=== PATIENT | female | born 1960 | race Caucasian/White ===

== ENCOUNTER 2020-10-16 17:53 | Emergency (ER) | payer BC, SELFPAY ==
[2020-10-16 17:56] VITALS: BP 163/85; PULSE 116; RESP 20; TEMP 36.4; O2SAT 100
--- NOTE | 2020-10-16 18:00 | ED.URI ---
HPI - URI/Sore Throat General Chief Complaint: Upper Respiratory Infection Stated Complaint: SOB Time Seen by Provider: 10/16/20 18:00 Source: patient Mode of arrival: ambulatory Limitations: no limitations History of Present Illness HPI Narrative: Nicole Shabazz is a 60 yo obese female with PMH of DM, GERD, COPD, who comes to the office wanting a steroid for sinusitis as she was seen at [facility] on Monday and was started on doxycycline. She has not given steroids at that time and when she was checked and here her O2 sats were were within normal limits but she said that she feels like she cannot breathe and that her nose is also starting to drain. Patient is wanting something to help with both the nasal drainage as well improve her lung function Related Data Allergies Allergy/AdvReac Type Severity Reaction Status Date / Time cephalexin Allergy Unknown Unknown Verified 05/05/20 11:19 ciprofloxacin Allergy Unknown Unknown Verified 05/05/20 11:19 fluoxetine Allergy Unknown Unknown Verified 05/05/20 11:19 meperidine Allergy Unknown Unknown Verified 05/05/20 11:19 Penicillins Allergy Unknown Unknown Verified 05/05/20 11:19 Quinolones Allergy Unknown Unknown Verified 05/05/20 11:19 CIPROFLOXACIN HCL Allergy Mild Unknown Uncoded 05/05/20 11:19 Review of Systems Review of Systems: Narrative: CONSTITUTIONAL: Denies fever, chills, sweats. EYES: Denies visual changes, redness, discharge. ENT: Denies rhinorrhea, congestion, sore throat, otalgia. CARDIOVASCULAR: Denies chest pain, palpitations, edema. RESPIRATORY: Denies dyspnea, wheezing, cough feels short of breath even though O2 sats in triage are within normal limits GASTROINTESTINAL: Denies abdominal pain, nausea, vomiting, diarrhea. GENITOURINARY: Denies dysuria, hematuria, abnormal discharge SKIN: Denies rash or itching. NEUROLOGIC: Denies numbness, or focal weakness. PSYCHIATRIC: Denies anxiety or depression. [facility] Past Medical History Medical History Anxiety Depression Diverticulitis (~12/2002) Dyslipidemia Essential (primary) hypertension GERD (gastroesophageal reflux disease) Hiatal hernia History of diverticulitis Hypothyroidism Left foot drop Type 2 diabetes mellitus without complications Surgical History Surgical History History of cholecystectomy 2015 History of lumbosacral spine surgery 2013 History of partial colectomy 01/2016 - secondary to perforated diverticulitis History of total abdominal hysterectomy and bilateral salpingo-oophorectomy 1996 Hx of tonsillectomy Family History Family History Mother Family history of osteoporosis Family history of mental disorder Family history of colonic diverticulitis Hypertension Father Cerebrovascular accident Family history of lung cancer Family history of glaucoma Other Diabetes mellitus Family history of arthritis Family history of cardiovascular disease Family history of heart disease in male family member before age 55 Social History Social History Smoking status: Former smoker Second hand tobacco smoke exposure: No Smoking end date: 11/06/12 Alcohol intake: current Substance use: never Substance use type: does not use Gender identity (if verbalized by the patient): Female Comments At time of signature, I agree with nursing past medical, surgical, social and family history. There is no relevant family history pertinent to the presenting complaint. Exam Narrative: Exam Narrative: GENERAL: This is a well-nourished, well-developed patient, in mild distress. Very anxious about her breathing status over the weekend HEAD: normocephalic, atraumatic. EYES: Sclera clear/white. Vision is grossly intact. EARS: External ears normal, auditory canal
== END 2020-10-16 18:14 | disposition home or self-care (01) ==
PROVIDERS: Emergency Provider Nurse Practitioner
DX: F41.9 Anxiety disorder, unspecified (principal); R06.02 Shortness of breath; Z87.891 Personal history of nicotine dependence; F32.9 Major depressive disorder, single episode, unspecified; E78.5 Hyperlipidemia, unspecified; I10 Essential (primary) hypertension; K21.9 Gastro-esophageal reflux disease without esophagitis; E03.9 Hypothyroidism, unspecified; E11.9 Type 2 diabetes mellitus without complications; J44.9 Chronic obstructive pulmonary disease, unspecified
CPT/HCPCS: 99213; G0463

== ENCOUNTER 2020-10-18 16:03 | Emergency (ER) | payer BC, SELFPAY ==
--- NOTE | ~2020-10-18 | XR_ITS ---
EXAMINATION: XR chest 2V DATE: 10/18/2020 16:34 INDICATION: Shortness of breath TECHNIQUE: PA and lateral views of the chest are obtained. COMPARISON: 11/15/2015 FINDINGS: There are minimal airspace opacities of the lung bases. There is no pleural effusion or pne umothorax. The cardiomediastinal silhouette is normal. There is moderate thoracic spondylosis. IMPRESSION: 1. Minimal airspace opacities of the lung bases, consistent with atelectasis versus pneumonia. Reviewed, dictated and finalized at location A. ITY FACILITATOR IMPRESSION: 1. Minimal airspace opacities of the lung bases, consistent with atelectasis ve rsus pneumonia.
[2020-10-18 16:10] VITALS: BP 153/91; PULSE 118; RESP 20; TEMP 36.8; O2SAT 99
--- NOTE | 2020-10-18 16:10 | ED.GENADULT ---
HPI - General Adult General Chief complaint: Upper Respiratory Infection Stated complaint: back pain/sob Time Seen by Provider: 10/18/20 16:06 Source: patient Mode of arrival: ambulatory Limitations: no limitations History of Present Illness HPI narrative: 60-year-old female patient presents to the [facility] with complaints of shortness of breath and just overall having trouble catching her breath. Patient states that her shortness of breath at times comes on when she is just sitting there resting. Patient states that at times it does get better when she is up walking around. Patient states she does have a lot when trying to go to sleep but then she starts to calm herself down and is able to fall asleep. Patient states that her symptoms started this past Monday on 10/13. Patient states she was seen at [facility] on 10/14 and was given doxycycline and an inhaler for her symptoms. Patient states that her symptoms were not any better on Monday so she came here Monday and saw the nurse practitioner and was given a 10-day dose of prednisone and Zyrtec. Patient states she does not feel like any of the medications are helping her and continues to have some issues with shortness of breath and catching her breathing. Patient denies any fevers, body aches or chills. Denies any coughing. Denies any chest pain. Patient states she does have some back pain at times. Denies any abdominal pain, nausea, vomiting or diarrhea. Patient does have history of anxiety and states that she does have lorazepam at home to take for anxiety but states she has not taken it in the last 2 to 3 weeks. Patient states she was unsure if she could take it with the medications that she is currently on so she has not taken it. Patient states she has not been tested for Covid. Related Data Home Medications Medication Instructions Recorded Confirmed citalopram 10 mg PO DAILY 10/18/20 10/18/20 Allergies Allergy/AdvReac Type Severity Reaction Status Date / Time cephalexin Allergy Unknown Unknown Verified 10/18/20 16:06 ciprofloxacin Allergy Unknown Unknown Verified 10/18/20 16:06 fluoxetine Allergy Unknown Unknown Verified 10/18/20 16:06 meperidine Allergy Unknown Unknown Verified 10/18/20 16:06 Penicillins Allergy Unknown Unknown Verified 10/18/20 16:06 Quinolones Allergy Unknown Unknown Verified 12/13/20 16:06 CIPROFLOXACIN HCL Allergy Mild Unknown Uncoded 05/05/20 11:19 Review of Systems Review of Systems: Narrative: CONSTITUTIONAL: Denies fever, chills, or sweats. EYES: Denies visual changes, redness, or discharge. ENT: Denies rhinorrhea, congestion, sore throat, or otalgia. CARDIOVASCULAR: Denies chest pain, palpitations, or edema. RESPIRATORY: Denies cough, positive dyspnea. GASTROINTESTINAL: Denies abdominal pain, nausea, vomiting, or diarrhea. GENITOURINARY: Denies dysuria or hematuria. SKIN: Denies rash or itching. MUSCULOSKELETAL: Positive back pain, denies joint pain, or myalgia. NEUROLOGIC: Denies headache, numbness, or weakness. PSYCHIATRIC: Denies anxiety or depression. [facility] Past Medical History Medical History Anxiety Depression Diverticulitis (~12/2002) Dyslipidemia Essential (primary) hypertension GERD (gastroesophageal reflux disease) Hiatal hernia History of diverticulitis Hypothyroidism Left foot drop Type 2 diabetes mellitus without complications Surgical History Surgical History History of cholecystectomy 2015 History of lumbosacral spine surgery 2013 History of partial colectomy 01/2016 - secondary to perforated diverticulitis History of total abdominal hysterectomy and bilateral salpingo-oophorectomy 1996 Hx of tonsillectomy Family History Family History Mother Family history of osteoporosis Family history of mental disorder Family history of colonic d
--- NOTE | 2020-10-18 16:31 | ECG_ITS ---
Measurements Intervals [place] Rate: 113 P: 38 IN: 147 QRS: 2 QRSD: 90 T: 74 QT: 333 QTc: 457 Interpretive Statements SINUS TACHYCARDIA VENTRICULAR PREMATURE COMPLEXES NONSPECIFIC T-WAVE ABNORMALITY- INF/HIGH LAT LEADS BASELINE ARTIFACT- II, III, AVF ABNORMAL ECG Electronically Signed On 10-19-2020 6:54:47 SENIOR COURTROOM CLERK by Kenan Toscano D.O.
== END 2020-10-18 16:58 | disposition home or self-care (01) ==
PROVIDERS: Emergency Provider Nurse Practitioner Family
DX: Z20.828 Contact with and (suspected) exposure to other viral communicable diseases (principal); J18.9 Pneumonia, unspecified organism; R94.31 Abnormal electrocardiogram [ECG] [EKG]; Z87.891 Personal history of nicotine dependence; E78.5 Hyperlipidemia, unspecified; I10 Essential (primary) hypertension; E03.9 Hypothyroidism, unspecified; E11.9 Type 2 diabetes mellitus without complications; K21.9 Gastro-esophageal reflux disease without esophagitis; F41.9 Anxiety disorder, unspecified; F32.9 Major depressive disorder, single episode, unspecified
CPT/HCPCS: 71046; 93005; 99213; G0463

== ENCOUNTER 2020-10-19 07:02 | Outpatient (NON) | payer BC, SELFPAY ==
[2020-10-19 18:34] LABS: SARS-CoV-2 RNA PCR Negative
== END 2020-10-19 07:03 ==
LOC: ANHCOVIDDT 07:07
PROVIDERS: Visit Provider Nurse Practitioner Family
DX: Z20.828 Contact with and (suspected) exposure to other viral communicable diseases (principal); J18.9 Pneumonia, unspecified organism
CPT/HCPCS: 87635; C9803; U0003

== ENCOUNTER 2020-11-03 06:50 | Outpatient (NON) | payer BC, SELFPAY ==
[2020-11-03 18:45] LABS: SARS-CoV-2 RNA PCR Negative
== END 2020-11-03 06:51 ==
LOC: ANHCOVIDDT 06:54
PROVIDERS: PCP Physician Assistant; Visit Provider Physician Assistant
DX: R68.89 Other general symptoms and signs (principal); Z20.828 Contact with and (suspected) exposure to other viral communicable diseases
CPT/HCPCS: 87635; C9803; U0003

== ENCOUNTER 2021-08-09 10:44 | Outpatient (CLI) | payer BC, SELFPAY ==
--- NOTE | 2021-08-09 10:50 | ECG_ITS ---
Measurements Intervals [place] Rate: 104 P: 55 [place]: 146 QRS: 3 QRSD: 89 T: 57 QT: 343 QTc: 452 Interpretive Statements SINUS TACHYCARDIA LOW QRS VOLTAGE IN PRECORDIAL LEADS BASELINE WANDER- II, III, V1-V3 BORDERLINE ECG Electronically Signed On 08-09-2021 11:29:50 CDT by Kenan Toscano D.O.
== END 2021-08-09 10:45 | disposition home or self-care (01) ==
PROVIDERS: PCP Family Medicine; Visit Provider Family Medicine
DX: Z01.818 Encounter for other preprocedural examination (principal); R94.31 Abnormal electrocardiogram [ECG] [EKG]
CPT/HCPCS: 93005

== ENCOUNTER → 2022-02-11 08:13 | Outpatient (CLI) | payer BC, SELFPAY ==
--- NOTE | ~2022-02-11 | CT_ITS ---
EXAMINATION: CT abdomen pelvis wo con EXAM DATE: 02/11/2022 08:33 INDICATION: K43.2 - Incisional hernia without obstruction or gangrene. TECHNIQUE: Spiral CT of the abdomen and pelvis was performed without contrast. Axial, coronal and s agittal images of the abdomen and pelvis were reviewed. The dose-length product (DLP) for this exami nation was 1074.91 mGy-cm. The exposure was tailored according to patient size (auto mA exposure con trol), and iterative reconstruction (ASIR) was used as additional dose reduction technique. Compariso n is made to prior examination from 02/09/2016. FINDINGS: There is a right adrenal myelolipoma measuring 2.7 cm. Subcentimeter left adrenal adenoma. The spleen, liver and pancreas are unremarkable. There are cholecystectomy clips. There is no nephr olithiasis or hydronephrosis. The uterus is not identified and has likely been surgically resected. The bladder is unremarkable. There is no retroperitoneal or pelvic lymphadenopathy. There is mil d scattered arteriosclerotic disease. Large supraumbilical abdominal wall hernia containing multiple loops of nonobstructed small bowel. There are no findings to suggest appendicitis. There are surgical changes consistent with gastric sl eeve procedure. There is expected amount of colonic stool. No free intraperitoneal gas. Rectosigmo id anastomosis site. There is mild scattered colonic diverticulosis. There is no adjacent inflammato ry change to suggest diverticulitis. The heart is normal in size. There are no pericardial or pleur al effusions. The lung bases are unremarkable. There are no osteoblastic or osteolytic lesions iden tified. IMPRESSION: 1. Large supraumbilical hernia containing multiple nonobstructed small bowel loops. 2. Right adrenal myelolipoma. 3. Mild colonic diverticulosis. 4. Surgical changes. Reviewed, dictated and finalized at location A. IMPRESSION: 1. Large supraumbilical hernia containing multiple nonobstructed small bowel l oops. 2. Right adrenal myelolipoma. 3. Mild colonic diverticulosis. 4. Surgical changes.
== END ==
PROVIDERS: PCP Physician Assistant; Visit Provider Surgery
DX: K43.2 Incisional hernia without obstruction or gangrene (principal); D35.00 Benign neoplasm of unspecified adrenal gland; K57.30 Diverticulosis of large intestine without perforation or abscess without bleeding; K42.9 Umbilical hernia without obstruction or gangrene
CPT/HCPCS: 74176

== ENCOUNTER 2022-10-12 11:11 | Outpatient (CLI) | payer BC, SELFPAY ==
--- NOTE | 2022-10-12 11:30 | ECG_ITS ---
Measurements Intervals [place] Rate: 83 P: 38 [place]: 147 QRS: 0 QRSD: 80 T: 60 QT: 339 QTc: 399 Interpretive Statements SINUS RHYTHM BASELINE ARTIFACT PRESENT NONSPECIFIC ST & T-WAVE ABNORMALITY COMPARED TO ECG 08/09/2021 11:02:43 SINUS RHYTHM NOW PRESENT Electronically Signed On 10-12-2022 15:09:35 BUSINESS UNIT CONTROLLER by Topher Ross M.D.
[2022-10-12 12:20] LABS: Basophils Percent Auto 0.5 % (0.2-1.2); Eosinophils Absolute Auto 0.1 K/mm3 (0-0.3); Eosinophils Percent Auto 1.5 % (0-4.4); Hematocrit 37.3 % (37.0-47.0); Hemoglobin 12.2 g/dL (12.0-15.0); Immature Granulocyte Absolute 0.02 K/mm3 (0.00-0.031); Immature Granulocyte Percent A 0.3 % (0-0.5); Lymphocytes Absolute Auto 2.12 K/mm3 (0.9-3.2); Lymphocytes Percent Auto 34.2 % (18.3-44.2); Mean Corpuscular HGB Conc 32.7 g/dl (32-36); Mean Corpuscular Hemoglobin 29.9 pg (26-34); Mean Corpuscular Volume 91.4 fl (80-100); Monocytes Absolute Auto 0.5 K/mm3 (0.1-0.6); Monocytes Percent Auto 8.1 % (2.6-8.5); Neutrophils Absolute Auto 3.4 K/mm3 (1.3-6.7); Neutrophils Percent Auto 55.4 % (45.5-73.1); Platelet Count Result 272 k/mm3 (150-375); Red Blood Count 4.08 M/mm3 (4.2-5.4); Red Cell Distribution Width 13.4 % (11.5-14.5); White Blood Count 6.2 K/mm3 (4.5-10.0)
[2022-10-12 12:32] LABS: Anion Gap 5 mmol/L (8-16); Blood Urea Nitrogen 20 mg/dL (7-17); Carbon Dioxide 31 mmol/L (22-30); Chloride 99 mmol/L (98-107); Estimated Glomerular Filt Rate > 60; Glucose 93 mg/dL (65-110); Potassium 4.1 mmol/L (3.4-5.0); Sodium 135 mmol/L (137-145)
== END 2022-10-12 11:12 | disposition home or self-care (01) ==
PROVIDERS: PCP Family Medicine; Visit Provider Surgery
DX: K43.2 Incisional hernia without obstruction or gangrene (principal); I10 Essential (primary) hypertension; Z01.818 Encounter for other preprocedural examination
CPT/HCPCS: 36415; 80048; 85025; 86850; 86900; 86901; 93005

== ENCOUNTER 2022-10-26 15:10 | Inpatient (IN) | payer BC, SELFPAY ==
[2022-10-10 15:08] VITALS: BMI 43.2
--- NOTE | 2022-10-10 15:22 | PC.NURSE ---
Addendum entered by Isabel Lambert RN 10/24/22 09:37: PT AWARE MASKS REQUIRED. Addendum entered by Isabel Lambert RN 10/24/22 09:36: PT TO ARRIVE AT 0600 ON 10/26/22 FOR SURGERY AT 0800. CLEAR LIQUIDS UP TO 20 OZ UNTIL 0500. Original Note: Report to the Outpatient Waiting Room, entrance under the green pavilion located off [facility], at time 10:00 on date 10/21/22. Planned Procedure Time: 12:00. Time changes happen often and if your time is changed the preop area will call you the afternoon before. - You and your visitor will be asked to self-screen and do not enter if you have any COVID symptoms. - Only one visitor is requested with a max of two and NO children visitors are allowed at this time. - The patient visitor may be requested to leave or wait in car when not with patient due to distancing restrictions. - A mask is optional within the hospital. Patients may have clear liquids (water, carbonated beverages, clear teas, apple juice) until 3 hours prior to surgery (9:00) with a maximum of 20 ounces. - No food from midnight until time of surgery Take the following medications with a SIP of water the morning of surgery: LEVOTHYROXINE, LORAZEPAM IF NEEDED Medications to discontinue per physician: VITAMINS/SUPPLEMENTS Date to take last dose: 10/17/22 Please no make-up, nail russian, hairspray, perfume, deodorant, or body powder the day of surgery. No jewelry (including any body piercings) or valuables the day of surgery, leave them at home. Please take a shower or bath the night before, or the morning of, surgery with an antibacterial soap (HIBICLENS). Wear comfortable, loose fitting clothing. - Jewelry must be removed prior to entering the operating room. Rings and piercings that are not removed may be cut off. - The hospital will not accept responsibility for valuables. - Please leave all valuables, including medications, at home the day of surgery. If you are going home after surgery, a licensed funeral car driver must drive you home. - NO public transportation without another adult if you receive anesthesia. - We recommend that an adult stay with you for 24 hours following discharge. - We also recommend that you do not drive, make important decision, drink alcoholic beverages, or take any drugs that were not prescribed by your health care provider for at least 24 hours after your discharge time. Follow any additional instructions given to you from your surgeon. If you or anyone in your household have experienced Covid symptoms in the past week, please notify your surgeon or the nurse liaison at the phone number below for possible testing. Telephone instructions given to FRANCY MORRIS and asked if any additional questions and then verbalized understanding. Patient advised to call surgeon office or pre surgery nurse liaison [phone] if any additional questions.
--- NOTE | 2022-10-24 09:36 | PC.NURSE ---
Pt states no changes in medications or health history since initial interview. New pre-op instructions reviewed with pt. Pt denies further questions at this time.
[2022-10-26] VITALS (14 sets, daily range): BP systolic 114–135; BP diastolic 63–96; PULSE 89–114; RESP 12–20; TEMP 36.8–37; O2SAT 94–100
[2022-10-26] MEDS: ACETAMINOPHEN 500 MG TABLET 1000 MG PO (06:36)
[2022-10-26] MEDS: LACTATED RINGERS 1,000 ML 30 ML IV CONT ×2 (06:45→13:09)
--- NOTE | 2022-10-26 06:48 | PM.IMHP ---
H&P: HPI History of Present Illness Date/Time: 10/26/22 06:48 Chief Complaint: incisional hernia Narrative: 62 yo woman presents for incisional hernia repair. She has had a previous ex lap for diverticulitis, had Petros's procedure and eventually had colostomy takedown. She has had a hernia that progressively enlarged. She now presents for complex repair. Review of Systems Review of Systems: All systems reviewed & are unremarkable except as noted in HPI and below Constitutional: Constitutional: Denies chills, Denies fever(s), Denies headache(s) and Denies weight loss Eyes: Eyes: Denies change in vision ENT: Denies dizziness, Denies headache(s), Denies neck mass and Denies throat swelling Cardiovascular: Cardiovascular: Denies chest pain, Denies lightheadedness and Denies dyspnea Respiratory: Respiratory: Denies cough, Denies dyspnea and Denies wheezing Gastrointestinal: Gastrointestinal: Denies abdominal pain, Denies change in bowel habits, Denies nausea and Denies vomiting Genitourinary: Genitourinary: Denies hematuria and Denies dysuria Musculoskeletal: Musculoskeletal: Reports as per HPI Integumentary/Breasts: Skin/Breast: Reports as per HPI Neurologic: Denies dizziness and Denies headache(s) Allergic/Immunologic: Allergic/Immunologic: Denies throat swelling and Denies wheezing [facility] Past Medical History Medical History Acquired pes planovalgus of left foot Anxiety Arthritis of knee, left Depression Diverticulitis (~12/2002) Dyslipidemia Encounter for immunization Essential (primary) hypertension GERD (gastroesophageal reflux disease) Hiatal hernia History of diverticulitis Hypothyroidism Type 2 diabetes mellitus without complications Surgical History Surgical History H/O bariatric surgery 2020 per patient questionnaire History of delivery History of cholecystectomy 2015 History of knee surgery History of lumbosacral spine surgery 2013 History of partial colectomy 01/2016 - secondary to perforated diverticulitis History of total abdominal hysterectomy and bilateral salpingo-oophorectomy 1996 Hx of tonsillectomy Family History Family History Mother Family history of osteoporosis Family history of mental disorder Family history of colonic diverticulitis Hypertension Cerebrovascular accident Diabetes mellitus Father Cerebrovascular accident Family history of lung cancer Family history of glaucoma Other Family history of arthritis Family history of cardiovascular disease Family history of heart disease in male family member before age 55 Social History Social History Smoking packs per day: 1 Smoking cigarettes per day: 20.0 Years smoked: 35 Smoking pack-years: 35.00 Smoking status: Former smoker Tobacco type: cigarettes Second hand tobacco smoke exposure: No Smoking end date: 11/06/12 Additional smoking assessment comments: 3 PACKS A DAY LAST COUPLE YRS OF SMOKING Alcohol intake: current Alcohol use details: VERY RARE Substance use: never Substance use type: does not use Living arrangements: with family Additional occupation/education comments: [employer] Gender identity (if verbalized by the patient): Female Spiritual care concerns: No Meds Home Medications and Allergies Home Medications Medication Instructions Recorded Confirmed Type levothyroxine 200 mcg tablet 200 mcg PO DAILY #90 tabs 12/30/21 10/26/22 Rx calcium carbonate 400 mg calcium 400 mg PO DAILY 01/14/22 10/26/22 History (1,000 mg) chewable tablet cholecalciferol (vitamin D3) 50 50 mcg PO DAILY 02/03/22 10/26/22 History mcg (2,000 unit) capsule lactobacillus combination no.9 4 4,000 mmu cells PO DAILY
[2022-10-26] MEDS: KETOROLAC 15 MG/ML VIAL (*BKC) IV PUSH (06:49)
--- NOTE | 2022-10-26 06:51 | WPDHPUPDATE1 ---
History and Physical Update Update Date/Time: 10/26/22 06:51 History and Physical has been reviewed, including an updated exam of the patient. There are NO changes in the patient's condition. Risks, benefits, and alternatives have been discussed and questions answered. Patient agrees to proceed with procedure.
[2022-10-26] MEDS: ALVIMOPAN 12 MG CAPSULE PO (07:17)
--- NOTE | 2022-10-26 07:44 | WPDANESEPPF ---
Anes - Initial Pre Proc Eval Procedure: Operation Date: 10/26/22 08:00 Proposed Procedures p Open Incisional Hernia Repair with Mesh Bilateral Component Separation - David Pulido DO Date/Time: 10/26/22 07:44 Surgeon: David Pulido DO Pre Op Diagnosis: incisional hernia Patient Data Age: 62 Gender: F Height: 1.7 m Weight: 126.1 kg Last Vital Signs Temp 37.0 C 10/26/22 07:06 Pulse 89 10/26/22 07:06 Resp 20 10/26/22 07:06 BP 115/80 10/26/22 07:06 Pulse Ox 100 10/26/22 07:06 O2 Del Method Room Air 10/26/22 07:06 Allergies Allergy/AdvReac Type Severity Reaction Status Date / Time ciprofloxacin Allergy Severe Anaphylaxis Verified 10/24/22 09:39 cephalexin Allergy Unknown Unknown Verified 10/24/22 09:39 fluoxetine Allergy Unknown Unknown Verified 10/24/22 09:39 meperidine Allergy Unknown Difficulty Verified 10/26/22 06:24 breathing/anxiety attack Penicillins Allergy Unknown Unknown Verified 10/24/22 09:39 Quinolones Allergy Unknown Unknown Verified 10/24/22 09:39 Home Medications Medication Instructions Recorded Confirmed Type levothyroxine 200 mcg tablet 200 mcg PO DAILY #90 tabs 12/30/21 10/26/22 Rx calcium carbonate 400 mg calcium 400 mg PO DAILY 01/14/22 10/26/22 History (1,000 mg) chewable tablet cholecalciferol (vitamin D3) 50 50 mcg PO DAILY 02/03/22 10/26/22 History mcg (2,000 unit) capsule lactobacillus combination no.9 4 4,000 mmu cells PO DAILY 02/03/22 10/26/22 History billion cell capsule (Adult 50 Plus Probiotic) mecobalamin (vitamin B12) 1,000 1,000 mcg PO DAILY 02/03/22 10/26/22 History mcg chewable tablet multivitamin 1 tablet PO DAILY 02/03/22 10/26/22 History clotrimazole-betamethasone 1 1 applic topical BID #15 grams 10/06/22 10/26/22 Rx %-0.05 % topical cream levothyroxine 25 mcg tablet 25 mcg PO .qod 10/06/22 10/26/22 History lorazepam 0.5 mg tablet 0.5 mg PO DAILY PRN anxiety #30 10/06/22 10/26/22 Rx tabs losartan 50 mg tablet 50 mg PO DAILY #30 tabs 10/06/22 10/26/22 Rx escitalopram oxalate 10 mg tablet 10 mg PO DAILY 10/26/22 10/26/22 History Patient hx anesthesia problems: none Family hx anesthesia problems: none Results Review: All pre-operative results and documents have been reviewed as part of the pre-operative evaluation. [facility] Past Medical History Medical History Acquired pes planovalgus of left foot Anxiety Arthritis of knee, left Depression Diverticulitis (~12/2002) Dyslipidemia Encounter for immunization Essential (primary) hypertension GERD (gastroesophageal reflux disease) Hiatal hernia History of diverticulitis Hypothyroidism Type 2 diabetes mellitus without complications Surgical History Surgical History H/O bariatric surgery 2020 per patient questionnaire History of delivery History of cholecystectomy 2015 History of knee surgery History of lumbosacral spine surgery 2013 History of partial colectomy 01/2016 - secondary to perforated diverticulitis History of total abdominal hysterectomy and bilateral salpingo-oophorectomy 1996 Hx of tonsillectomy Family History Family History Mother Family history of osteoporosis Family history of mental disorder Family history of colonic diverticulitis Hypertension Cerebrovascular accident Diabetes mellitus Father Cerebrovascular accident Family history of lung cancer Family history of glaucoma Other Family history of arthritis Family history of cardiovascular disease Family history of heart disease in male family member before age 55 Social History Social History Smoking packs per day: 1 Smoking cigarettes per day: 20.0 Years smoked: 35 Smoking pack-years: 35.00 Smoking status: Former
[2022-10-26] MEDS: CLINDAMYCIN 900 MG/D5W 50 ML 900 MG/50 ML PIGGYBACK 50 MG IVPB (07:57)
--- NOTE | 2022-10-26 13:09 | W.PM.PROC2 ---
Procedure Note - Detailed Date of Procedure 10/26/22 Pre-op Diagnosis Incarcerated incisional hernia Post-op Diagnosis Same Procedure Performed 1. Open retro rectus incarcerated incisional hernia repair 2. Retro rectus placement of 30 cm x 30 cm Bard soft mesh 3. Bilateral myofascial release (transversus abdominis release--6 cm on the left and 6 cm on the right) Surgeon David Pulido DO [employer] Dyer Yong Solis MD Anesthesia General Indications This is a 62-year-old woman who presented with an enlarging hernia. She has a history a Petros's procedure performed for perforated diverticulitis in 2016. She had an umbilical hernia repaired at that time. She then underwent colostomy takedown about 3 months later. One year ago she underwent laparoscopic sleeve gastrectomy and has lost greater than 50 lb. This hernia has become larger over the past couple years and is much more noticeable now that she has lost some weight. A CT of her abdomen and pelvis was performed on 02/11/2022. This showed evidence of a large supraumbilical hernia containing multiple loops of small bowel. This did not easily reduce on exam, but she was not showing any signs of bowel obstruction. Discussions were made with the patient about treatment options and decision was made to proceed with open incisional hernia repair with bilateral component separation. Findings Open incisional hernia repair was performed. The hernia sac was identified just superior to the umbilicus and was extending off to the left subcutaneous area. There was a large hernia sac and multiple loops of small bowel were adherent within the hernia sac. The small bowel was carefully taken down and appeared healthy. The hernia sac was excised and sent to the lab for pathology. There was too much tension to bring the fascia together and the hernia defect measured about 12 cm x 12 cm. A retrorectus space was developed bilaterally by the posterior rectus sheath from the rectus muscle. I then performed a transversus abdominis release bilaterally to develop enough mobilization on each side. This allowed approximately 6 cm of mobilization towards the midline on each side. I then closed the posterior sheath and placed a 30 cm x 30 cm Bard soft mesh within the retrorectus space. Two 19 round Josafat drains were placed within the retrorectus space as well. The anterior fascia was then closed over the mesh and another 15 round Josafat drain was placed within the subcutaneous space. Dr. Solis was present and assisted with the initial dissection and reduction of the incarcerated small bowel as well as for the bilateral component separation, mesh placement, and fascial closure. Description of Procedure Procedure as well as risks, benefits, and alternatives were discussed with patient. Her written consent was obtained and placed in chart prior to procedure. Patient was brought back to surgical suite. She was placed supine on operating table. Time-out was done to confirm patient and procedure. She was then intubated by the anesthesia department. Her abdomen was prepped and draped in sterile fashion using chlorhexidine prep. A large midline vertical incision was made using a 10 blade scalpel. Electrocautery was used for hemostasis and for dissection through the subcutaneous tissue. The hernia sac was identified and carefully dissected circumferentially to the level of the fascia. The linea alba was then incised just cephalad to the hernia defect and the peritoneum was entered using electrocautery. I then carefully excised the hernia sac from the midline and carefully reduced the bowel. The small bowel adhesions to the hernia sac were taken down using Metzenbaum scissors. There were also several other adhesions up to the abdominal wall that were carefully taken down. I was able to excised the entire hernia sac and visualize the entire undersurface of the abdominal wall. I then placed a blue towel over the bowel
[2022-10-26] MEDS: ONDANSETRON INJ 4 MG/2 ML VIAL IV PUSH (13:25)
--- NOTE | 2022-10-26 15:26 | ADMGEN ---
This patient, Nicole Shabazz, was admitted to Medical Room 258-. Patient/family oriented to hospital policies and general routines including ID bracelet, bed and alarms, visiting hours, pain management, procedures, bathroom and other care routines, personal items, smoking policy, room service/diet, and visiting hours. Information on how to activate the Rapid Response Team has been discussed. Patient/Family are encouraged to report perceived risks to care and to ask questions if they do not understand what they are told or what they should do.
[2022-10-26] MEDS: LACTATED RINGERS 1,000 ML 125 ML IV CONT (15:29)
[2022-10-26] MEDS: BETAMETHASONE/CLOTRIMAZOLE CR 15 GM TUBE 1 APPLIC TOPICAL (17:21)
[2022-10-26] MEDS: IBUPROFEN IV 800 MG/200 ML 800 MG/200 ML BAG 400 MG IVPB (17:58)
[2022-10-26] MEDS: HYDROcodone/acetaminophen (*CRX) 5-325 MG TABLET 1 TAB PO (22:03)
[2022-10-27 00:18] VITALS: BP 99/66; PULSE 115; RESP 20; TEMP 36.4; O2SAT 96
[2022-10-27] MEDS: IBUPROFEN IV 800 MG/200 ML 800 MG/200 ML BAG 400 MG IVPB ×4 (00:28→17:56)
[2022-10-27] MEDS: LACTATED RINGERS 1,000 ML 125 ML IV CONT ×3 (00:28→19:43)
[2022-10-27 03:14] VITALS: BP 100/73; PULSE 112; RESP 20; TEMP 36.7; O2SAT 98
[2022-10-27 05:25] LABS: Basophils Percent Auto 0.4 % (0.2-1.2); Eosinophils Percent Auto 0.3 % (0-4.4); Hematocrit 31.5 % (37.0-47.0); Hemoglobin 10.1 g/dL (12.0-15.0); Immature Granulocyte Absolute 0.03 K/mm3 (0.00-0.031); Immature Granulocyte Percent A 0.3 % (0-0.5); Lymphocytes Absolute Auto 0.99 K/mm3 (0.9-3.2); Mean Corpuscular HGB Conc 32.1 g/dl (32-36); Mean Corpuscular Hemoglobin 29.2 pg (26-34); Monocytes Absolute Auto 1.2 K/mm3 (0.1-0.6); Monocytes Percent Auto 12.7 % (2.6-8.5); Neutrophils Absolute Auto 6.8 K/mm3 (1.3-6.7); Neutrophils Percent Auto 75.3 % (45.5-73.1); Platelet Count Result 219 k/mm3 (150-375); Red Blood Count 3.46 M/mm3 (4.2-5.4); Red Cell Distribution Width 13.7 % (11.5-14.5)
[2022-10-27 05:41] LABS: Anion Gap 5 mmol/L (8-16); Blood Urea Nitrogen 25 mg/dL (7-17); Carbon Dioxide 26 mmol/L (22-30); Chloride 99 mmol/L (98-107); Estimated CRCL calculation 76 ml/min; Estimated Glomerular Filt Rate 57; Glucose 139 mg/dL (65-110); Potassium 4.6 mmol/L (3.4-5.0); Sodium 130 mmol/L (137-145)
[2022-10-27] MEDS: LEVOTHYROXINE SODIUM 100 MCG TABLET 200 MCG PO (06:07)
[2022-10-27] MEDS: LEVOTHYROXINE SODIUM 25 MCG TABLET PO (06:07)
[2022-10-27 08:13] VITALS: BP 106/60; PULSE 106; RESP 18; TEMP 36.6; O2SAT 95
--- NOTE | 2022-10-27 08:47 | PM.PNGS ---
Progress Note: A&P Assessment and Plan (1) Incarcerated incisional hernia: Code(s): K43.0 - Incisional hernia with obstruction, without gangrene Status: Acute Assessment and Plan: Doing well on POD#1. Abdominal binder not fitting well, will try a slightly wider size but might have to discontinue if it keeps rolling up and constricting her abdomen. Advance to full liquids today. Continue IV fluids due to some tachycardia and low urine output--continue to monitor. (2) BMI 40.0-44.9, adult: Code(s): Z68.41 - Body mass index [BMI] 40.0-44.9, adult Status: Acute (3) Anxiety: Code(s): F41.9 - Anxiety disorder, unspecified Status: Acute (4) Essential (primary) hypertension: Code(s): I10 - Essential (primary) hypertension Status: Acute Subjective Subjective Date/Time Seen: 10/27/22 08:47 Interval history: Pain controlled. Tolerating clears. Bowels moved. Abdominal binder isn't fitting well and is rolling up on her upper abdomen. Exam GI: Inspection: non-distended, incision (dressing dry) and other (DILEEP's serosanguinous) Urinary Catheter: Urinary Catheter: patent and draining and urine clear Objective Data Vital Signs Vital Signs: Vital Signs - 24 hr 10/26/22 13:15 10/26/22 13:30 10/26/22 13:45 Temperature 37.0 C Pulse Rate 103 H 102 H 98 Respiratory Rate 12 18 16 Blood Pressure 135/78 130/69 125/71 Pulse Oximetry 100 99 95 Oxygen Delivery Simple Face Mask Simple Face Mask Room Air Oxygen Flow Rate 8 8 10/26/22 14:00 10/26/22 14:15 10/26/22 14:30 Temperature Pulse Rate 96 100 102 H Respiratory Rate 18 16 16 Blood Pressure 127/73 121/73 125/72 Pulse Oximetry 98 97 96 Oxygen Delivery Nasal Cannula Nasal Cannula Nasal Cannula Oxygen Flow Rate 2 2 2 10/26/22 15:00 10/26/22 16:11 10/26/22 15:10 Temperature 36.8 C Pulse Rate 97 102 H Respiratory Rate 16 18 Blood Pressure 123/73 119/63 Pulse Oximetry 96 99 96 Oxygen Delivery Nasal Cannula Nasal Cannula Oxygen Flow Rate 2 1 10/26/22 15:25 10/26/22 15:55 10/26/22 16:55 Temperature 36.9 C 36.9 C 36.9 C Pulse Rate 96 106 H 106 H Respiratory Rate 18 18 18 Blood Pressure 119/96 H 119/74 116/74 Pulse Oximetry 96 94 94 Oxygen Delivery Oxygen Flow Rate 10/26/22 20:55 10/27/22 00:18 10/26/22 20:15 Temperature 36.8 C 36.4 C Pulse Rate 114 H 115 H Respiratory Rate 20 20 Blood Pressure 114/76 99/66 L Pulse Oximetry 95 96 Oxygen Delivery Room Air Oxygen Flow Rate 10/27/22 03:14 10/27/22 08:13 Temperature 36.7 C 36.6 C Pulse Rate 112 H 106 H Respiratory Rate 20 18 Blood Pressure 100/73 106/60 Pulse Oximetry 98 95 Oxygen Delivery Oxygen Flow Rate Intake/Output Intake/Output: Intake & Output 10/24/22 10/25/22 10/26/22 10/27/22 23:59 23:59 23:59 23:59 Intake Total 4090 890 Output Total 130 580 Balance 3960 310 Meds/Results Medications: Active Medications Generic Name Dose Route Start Last Admin Trade Name Freq PRN Reason Stop Dose Admin Hydrocodone Bitart/Acetaminophen 1 tab 10/26/22 21:47 10/26/22 22:03 Hydrocodone/Acetaminophen (*Crx) 5-325 Mg Tablet PO 1 tab Q4H PRN Administration Pain Rated 4-6 Alvimopan 12 mg 10/27/22 21:00 Alvimopan 12 Mg Capsule PO 11/03/22 20:59 Q12HR RAYMOND Clotrimazole 1 applic 10/26/22 17:00 10/26/22 17:21 Betamethasone/Clotrimazole Cr 15 Gm Tube TOPICAL 1 applic BID RAYMOND Administration Enoxaparin Sodium 40 mg 10/27/22 09:00 Enoxaparin 40 Mg/0.4 Ml Syringe SUB-Q DAILY RAYMOND Hydromorphone HCl 1 mg 10/26/22 15:10 Hydromorphone Hcl Inj (*Crx) 1 Mg/Ml Syr IV PUSH Q2H PRN Pain Rated 7-10 Hydromorphone HCl 0.5 mg 10/26/22 15:10 Hydromorphone Hcl Inj (*Crx) 1 Mg/Ml Syr IV PUSH Q2H PRN Pain Rated 4-6 Lactated Ringer's 1,000 mls @ 125 mls/hr 10/26/22 15:10 10/27/22 00:28 Lr - Lactated Ringers Iv IV CONT 125 mls/hr
--- NOTE | 2022-10-27 09:58 | WPDANESPN ---
Anes - Prog Note Post-Op Date/Time: 10/27/22 09:58 Vital Signs: Last Vital Signs Temp 36.6 C 10/27/22 08:13 Pulse 106 H 10/27/22 08:13 Resp 18 10/27/22 08:13 BP 106/60 10/27/22 08:13 Pulse Ox 95 10/27/22 08:13 O2 Del Method Room Air 10/26/22 20:15 O2 Flow Rate 1 10/26/22 16:11 Pain Score (VAS): 0 I/O: Intake & Output 10/26/22 10/27/22 10/27/22 23:59 07:59 15:59 Intake Total 1640 890 Output Total 70 580 Balance 1570 310 Laboratory Tests 10/27/22 05:09 10/27/22 05:09 10/27/22 10/27/22 05:09 05:09 WBC 9.0 RBC 3.46 L Hgb 10.1 L Hct 31.5 L MCV 91.0 MCH 29.2 MCHC 32.1 RDW 13.7 Plt Count 219 MPV 10.0 Immature Gran % (Auto) 0.3 Neut % (Auto) 75.3 H Lymph % (Auto) 11.0 L [place] % (Auto) 12.7 H Eos % (Auto) 0.3 Baso % (Auto) 0.4 Lymph # (Auto) 0.99 [place] # (Auto) 1.2 H Eos # (Auto) 0.0 Baso # (Auto) 0.0 Abs Immat Gran (auto) 0.03 Absolute Neuts (auto) 6.8 H Absolute Nucleated RBC 0.0 Nucleated RBC % 0.0 Sodium 130 L Potassium 4.6 Chloride 99 Carbon Dioxide 26 Anion Gap 5 L BUN 25 H Creatinine 1.00 Estim Creat Clear Calc 76 Estimated GFR 57 L Glucose 139 H Calcium 8.0 L Patient Feedback: Patient satisfied with anesthetic care.
[2022-10-27] MEDS: LOSARTAN POTASSIUM 50 MG TABLET PO (10:03)
[2022-10-27] MEDS: ENOXAPARIN 40 MG/0.4 ML SYRINGE SUB-Q (10:04)
[2022-10-27] MEDS: BETAMETHASONE/CLOTRIMAZOLE CR 15 GM TUBE 1 APPLIC TOPICAL ×2 (10:06→17:56)
[2022-10-27] MEDS: oxyCODONE HCL (*CRX) 5 MG TAB IR PO ×3 (12:35→23:47)
[2022-10-27 15:10] VITALS: BP 94/52; PULSE 102; RESP 18; TEMP 36.9; O2SAT 95
[2022-10-27] MEDS: CALCIUM CARBONATE (TUMS) 500 MG (200 MG ELEMENTAL) PO (19:43)
[2022-10-27 20:17] VITALS: BP 100/49; PULSE 99; RESP 20; TEMP 37.1; O2SAT 94
[2022-10-27] MEDS: ALVIMOPAN 12 MG CAPSULE PO (21:21)
[2022-10-28] MEDS: IBUPROFEN IV 800 MG/200 ML 800 MG/200 ML BAG 400 MG IVPB ×2 (00:45→06:44)
[2022-10-28 04:13] VITALS: BP 127/67; PULSE 108; RESP 20; TEMP 36.6; O2SAT 95
[2022-10-28] MEDS: LACTATED RINGERS 1,000 ML 125 ML IV CONT (04:55)
[2022-10-28] MEDS: oxyCODONE HCL (*CRX) 5 MG TAB IR PO ×3 (04:56→20:24)
[2022-10-28 06:19] LABS: Hematocrit 28.2 % (37.0-47.0); Mean Corpuscular HGB Conc 31.9 g/dl (32-36); Mean Corpuscular Hemoglobin 30.3 pg (26-34); Mean Corpuscular Volume 94.9 fl (80-100); Mean Platelet Volume 9.9 fl (7.4-10.4); Platelet Count Result 167 k/mm3 (150-375); Red Blood Count 2.97 M/mm3 (4.2-5.4); White Blood Count 7.6 K/mm3 (4.5-10.0)
[2022-10-28 06:41] LABS: Anion Gap 2 mmol/L (8-16); Blood Urea Nitrogen 21 mg/dL (7-17); Calcium 8.3 mg/dL (8.4-10.2); Carbon Dioxide 31 mmol/L (22-30); Chloride 101 mmol/L (98-107); Estimated CRCL calculation 98 ml/min; Estimated Glomerular Filt Rate > 60; Glucose 136 mg/dL (65-110); Potassium 4.2 mmol/L (3.4-5.0); Sodium 134 mmol/L (137-145)
[2022-10-28] MEDS: LEVOTHYROXINE SODIUM 100 MCG TABLET 200 MCG PO (06:48)
[2022-10-28 08:05] VITALS: BP 123/74; PULSE 102; RESP 18; TEMP 36.8; O2SAT 100
[2022-10-28] MEDS: ALVIMOPAN 12 MG CAPSULE PO ×2 (08:22→20:24)
[2022-10-28] MEDS: BETAMETHASONE/CLOTRIMAZOLE CR 15 GM TUBE 1 APPLIC TOPICAL ×2 (08:23→16:47)
[2022-10-28] MEDS: LOSARTAN POTASSIUM 50 MG TABLET PO (08:23)
[2022-10-28] MEDS: ENOXAPARIN 40 MG/0.4 ML SYRINGE SUB-Q (08:23)
--- NOTE | 2022-10-28 10:53 | PM.PNGS ---
Progress Note: A&P Assessment and Plan (1) Incarcerated incisional hernia: Code(s): K43.0 - Incisional hernia with obstruction, without gangrene Status: Acute Assessment and Plan: Advance to regular diet. Increase activity. Continue monitoring DILEEP drain output 1 more day. Possibly home tomorrow if doing well. (2) BMI 40.0-44.9, adult: Code(s): Z68.41 - Body mass index [BMI] 40.0-44.9, adult Status: Acute (3) Anxiety: Code(s): F41.9 - Anxiety disorder, unspecified Status: Acute (4) Essential (primary) hypertension: Code(s): I10 - Essential (primary) hypertension Status: Acute Subjective Subjective Date/Time Seen: 10/28/22 10:53 Interval history: Continuing to improve. Ambulating some in hallways today. Passing flatus and had a couple small BM's. Some heartburn last night but not today. Tolerating diet. Pain controlled. Exam GI: Inspection: non-distended, incision (dressing dry) and other (DILEEP's serosanguinous) GI Palp: Yes Tenderness to palpation present (GI) (incisional) Auscultation: normal bowel sounds Objective Data Vital Signs Vital Signs: Vital Signs - 24 hr 10/27/22 15:10 10/27/22 20:17 10/27/22 20:00 Temperature 36.9 C 37.1 C Pulse Rate 102 H 99 Respiratory Rate 18 20 Blood Pressure 94/52 L 100/49 L Pulse Oximetry 95 94 Oxygen Delivery Room Air 10/28/22 04:13 10/28/22 08:05 Temperature 36.6 C 36.8 C Pulse Rate 108 H 102 H Respiratory Rate 20 18 Blood Pressure 127/67 123/74 Pulse Oximetry 95 100 Oxygen Delivery Intake/Output Intake/Output: Intake & Output 10/25/22 10/26/22 10/27/22 10/28/22 23:59 23:59 23:59 23:59 Intake Total 4090 4080 1810 Output Total 130 1710 50 Balance 3960 2370 1760 Meds/Results Medications: Active Medications Generic Name Dose Route Start Last Admin Trade Name Freq PRN Reason Stop Dose Admin Alvimopan 12 mg 10/27/22 21:00 10/28/22 08:22 Alvimopan 12 Mg Capsule PO 11/03/22 20:59 12 mg Q12HR RAYMOND Administration Calcium Carbonate 200 mg 10/27/22 19:32 10/27/22 19:43 Calcium Carbonate (Tums) 500 Mg (200 Mg Elemental) PO 200 mg Q6H PRN Administration Indigestion Clotrimazole 1 applic 10/26/22 17:00 10/28/22 08:23 Betamethasone/Clotrimazole Cr 15 Gm Tube TOPICAL 1 applic BID RAYMOND Administration Enoxaparin Sodium 40 mg 10/27/22 09:00 10/28/22 08:23 Enoxaparin 40 Mg/0.4 Ml Syringe SUB-Q 40 mg DAILY RAYMOND Administration Hydromorphone HCl 1 mg 10/26/22 15:10 Hydromorphone Hcl Inj (*Crx) 1 Mg/Ml Syr IV PUSH Q2H PRN Pain Rated 7-10 Hydromorphone HCl 0.5 mg 10/26/22 15:10 Hydromorphone Hcl Inj (*Crx) 1 Mg/Ml Syr IV PUSH Q2H PRN Pain Rated 4-6 Lactated Ringer's 1,000 mls @ 125 mls/hr 10/26/22 15:10 10/28/22 04:55 Lr - Lactated Ringers Iv IV CONT 125 mls/hr .Q8H RAYMOND Administration Ibuprofen 800 mg in 200 mls @ 400 mls/hr 10/26/22 18:00 10/28/22 07:14 Caldolor 800 Mg/200 Ml IVPB Infused Q6HR RAYMOND Infusion Levothyroxine Sodium 25 mcg 10/27/22 06:30 10/27/22 06:07 Levothyroxine Sodium 25 Mcg Tablet PO 25 mcg Q48H RAYMOND Administration Levothyroxine Sodium 200 mcg 10/27/22 06:30 10/28/22 06:48 Levothyroxine Sodium 100 Mcg Tablet PO 200 mcg DAILY@0630 RAYMOND Administration Lorazepam 0.5 mg 10/26/22 15:10 Lorazepam (*Crx) 0.5 Mg Tablet PO DAILY PRN anxiety Losartan Potassium 50 mg 10/27/22 09:00 10/28/22 08:23 Losartan Potassium 50 Mg Tablet PO 50 mg DAILY RAYMOND Administration Oxycodone HCl 5 mg 10/27/22 08:45 10/28/22 04:56 Oxycodone Hcl (*Crx) 5 Mg Tab Ir PO 5 mg Q4H PRN Administration Pain Rated 4-6 Oxycodone HCl 10 mg 10/27/22 08:45 Oxycodone Hcl (*Crx) 5 Mg Tab Ir PO Q4H PRN Pain Rated 7-10 Promethazine HCl 12.5 mg 10/26/22 15:10 Promethazine Hcl 25 Mg/Ml Ampul IV PUSH Q4H PRN Nausea And Vomit
[2022-10-28] MEDS: CALCIUM CARBONATE (TUMS) 500 MG (200 MG ELEMENTAL) PO ×2 (11:22→18:01)
[2022-10-28] MEDS: polyethylene glycoL 3350 17 GM POWD.PACK PO (11:22)
[2022-10-28 13:44] VITALS: BP 124/72; PULSE 110; RESP 18; TEMP 36.6; O2SAT 98
[2022-10-28] MEDS: IBUPROFEN 400 MG TABLET 800 MG PO ×2 (15:34→20:41)
[2022-10-28 21:59] VITALS: BP 92/68; PULSE 115; RESP 12; TEMP 36.5; O2SAT 96
[2022-10-29] MEDS: oxyCODONE HCL (*CRX) 5 MG TAB IR PO ×4 (00:30→18:02)
[2022-10-29] MEDS: CALCIUM CARBONATE (TUMS) 500 MG (200 MG ELEMENTAL) PO ×2 (00:55→18:01)
[2022-10-29 05:43] LABS: Hematocrit 26.5 % (37.0-47.0); Hemoglobin 8.2 g/dL (12.0-15.0); Mean Corpuscular HGB Conc 30.9 g/dl (32-36); Mean Corpuscular Hemoglobin 29.4 pg (26-34); Mean Platelet Volume 10.1 fl (7.4-10.4); Platelet Count Result 198 k/mm3 (150-375); Red Blood Count 2.79 M/mm3 (4.2-5.4); Red Cell Distribution Width 13.8 % (11.5-14.5); White Blood Count 7.5 K/mm3 (4.5-10.0)
[2022-10-29 06:00] VITALS: BP 122/74; PULSE 99; RESP 14; TEMP 36.4; O2SAT 97
[2022-10-29 06:01] LABS: Anion Gap 1 mmol/L (8-16); Blood Urea Nitrogen 13 mg/dL (7-17); Calcium 8.4 mg/dL (8.4-10.2); Carbon Dioxide 33 mmol/L (22-30); Chloride 104 mmol/L (98-107); Estimated CRCL calculation 111 ml/min; Estimated Glomerular Filt Rate > 60; Glucose 132 mg/dL (65-110); Potassium 4.3 mmol/L (3.4-5.0); Sodium 138 mmol/L (137-145)
[2022-10-29] MEDS: IBUPROFEN 400 MG TABLET 800 MG PO ×3 (06:30→21:26)
[2022-10-29] MEDS: LEVOTHYROXINE SODIUM 100 MCG TABLET 200 MCG PO (06:30)
[2022-10-29] MEDS: LEVOTHYROXINE SODIUM 25 MCG TABLET PO (06:30)
[2022-10-29 08:46] VITALS: BP 142/70; PULSE 97; RESP 17; O2SAT 98
[2022-10-29] MEDS: ALVIMOPAN 12 MG CAPSULE PO ×2 (08:48→21:26)
[2022-10-29] MEDS: ENOXAPARIN 40 MG/0.4 ML SYRINGE SUB-Q (08:48)
[2022-10-29] MEDS: BETAMETHASONE/CLOTRIMAZOLE CR 15 GM TUBE 1 APPLIC TOPICAL ×2 (08:48→18:02)
[2022-10-29] MEDS: polyethylene glycoL 3350 17 GM POWD.PACK PO (08:48)
[2022-10-29] MEDS: LOSARTAN POTASSIUM 50 MG TABLET PO (08:48)
[2022-10-29 11:08] VITALS: O2SAT 99
--- NOTE | 2022-10-29 11:55 | PM.PNGS ---
Progress Note: A&P Assessment and Plan (1) Incarcerated incisional hernia: Code(s): K43.0 - Incisional hernia with obstruction, without gangrene Status: Acute Assessment and Plan: Will remove the lower 19 round Josafat drains today. Keep the subcutaneous 15 round Josaf[address] drain in place. Increase activity slowly Stimulate bowels with milk of magnesia today (2) Acute blood loss anemia: Code(s): D62 - Acute posthemorrhagic anemia Status: Acute Assessment and Plan: Hemoglobin down to 8.2 today. Not having much output from the DILEEP drains and appearing hemodynamically stable. Likely a combination of blood loss during surgery and dilution with IV fluids. Will repeat hemoglobin again tomorrow. Home tomorrow if remaining hemodynamically stable. Subjective Subjective Date/Time Seen: 10/29/22 11:55 Interval history: Patient still having some pain, ambulating better, tolerating diet. Minimal bowel movements so far. Exam GI: Inspection: non-distended, incision (Dressing dry) and other (DILEEP's with serosanguineous output) GI Palp: Yes Soft to palpation and Yes Firmness to palpation present (GI) (Incisional) Objective Data Vital Signs Vital Signs: Vital Signs - 24 hr 10/28/22 13:44 10/28/22 21:59 10/28/22 20:00 Temperature 36.6 C 36.5 C Pulse Rate 110 H 115 H Respiratory Rate 18 12 Blood Pressure 124/72 92/68 L Pulse Oximetry 98 96 Oxygen Delivery Room Air 10/29/22 06:00 10/29/22 08:46 10/29/22 08:55 Temperature 36.4 C Pulse Rate 99 97 Respiratory Rate 14 17 Blood Pressure 122/74 142/70 H Pulse Oximetry 97 98 Oxygen Delivery Room Air 10/29/22 11:08 Temperature Pulse Rate Respiratory Rate Blood Pressure Pulse Oximetry 99 Oxygen Delivery Room Air Intake/Output Intake/Output: Intake & Output 10/26/22 10/27/22 10/28/22 10/29/22 23:59 23:59 23:59 23:59 Intake Total 4090 4080 3940 340 Output Total 130 1710 50 70 Balance 3960 2370 3890 270 Meds/Results Medications: Active Medications Generic Name Dose Route Start Last Admin Trade Name Freq PRN Reason Stop Dose Admin Acetaminophen 1,000 mg 10/28/22 10:57 Acetaminophen 500 Mg Tablet PO Q6H PRN Mild Pain (1-3) or Fever Alvimopan 12 mg 10/27/22 21:00 10/29/22 08:48 Alvimopan 12 Mg Capsule PO 11/03/22 20:59 12 mg Q12HR RAYMOND Administration Calcium Carbonate 200 mg 10/27/22 19:32 10/29/22 00:55 Calcium Carbonate (Tums) 500 Mg (200 Mg Elemental) PO 200 mg Q6H PRN Administration Indigestion Clotrimazole 1 applic 10/26/22 17:00 10/29/22 08:48 Betamethasone/Clotrimazole Cr 15 Gm Tube TOPICAL 1 applic BID RAYMOND Administration Enoxaparin Sodium 40 mg 10/27/22 09:00 10/29/22 08:48 Enoxaparin 40 Mg/0.4 Ml Syringe SUB-Q 40 mg DAILY RAYMOND Administration Hydromorphone HCl 1 mg 10/26/22 15:10 Hydromorphone Hcl Inj (*Crx) 1 Mg/Ml Syr IV PUSH Q2H PRN Pain Rated 7-10 Hydromorphone HCl 0.5 mg 10/26/22 15:10 Hydromorphone Hcl Inj (*Crx) 1 Mg/Ml Syr IV PUSH Q2H PRN Pain Rated 4-6 Ibuprofen 800 mg 10/28/22 14:00 10/29/22 06:30 Ibuprofen 400 Mg Tablet PO 800 mg Q8HR RAYMOND Administration Levothyroxine Sodium 25 mcg 10/27/22 06:30 10/29/22 06:30 Levothyroxine Sodium 25 Mcg Tablet PO 25 mcg Q48H RAYMOND Administration Levothyroxine Sodium 200 mcg 10/27/22 06:30 10/29/22 06:30 Levothyroxine Sodium 100 Mcg Tablet PO 200 mcg DAILY@0630 RAYMOND Administration Lorazepam 0.5 mg 10/26/22 15:10 Lorazepam (*Crx) 0.5 Mg Tablet PO DAILY PRN anxiety Losartan Potassium 50 mg 10/27/22 09:00 10/29/22 08:48 Losartan Potassium 50 Mg Tablet PO 50 mg DAILY RAYMOND Administration Oxycodone HCl 5 mg 10/27/22 08:45 10/29/22 06:33 Oxycodone Hcl (*Crx) 5 Mg Tab Ir PO 5 mg Q4H PRN Administration Pain Rated 4-6 Oxycodone HCl 10 mg 10/27/22 08:45 Oxycodone Hcl (*Crx) 5 Mg T
[2022-10-29] MEDS: MAGNESIUM HYDROXIDE SUSP 30 ML UDC PO (12:30)
[2022-10-29 15:15] VITALS: BP 128/79; PULSE 91; RESP 18; TEMP 36.8; O2SAT 99
[2022-10-29 20:20] VITALS: BP 100/77; PULSE 98; RESP 17; TEMP 36.4; O2SAT 98
[2022-10-29 23:13] VITALS: BP 129/82; PULSE 79; RESP 17; TEMP 36.6; O2SAT 95
[2022-10-30] MEDS: CALCIUM CARBONATE (TUMS) 500 MG (200 MG ELEMENTAL) PO
[2022-10-30] MEDS: oxyCODONE HCL (*CRX) 5 MG TAB IR PO ×2 (02:31→10:59)
[2022-10-30 03:59] VITALS: BP 131/69; PULSE 79; RESP 18; TEMP 36.6; O2SAT 99
[2022-10-30 05:46] LABS: Hematocrit 26.3 % (37.0-47.0); Hemoglobin 8.2 g/dL (12.0-15.0); Mean Corpuscular HGB Conc 31.2 g/dl (32-36); Mean Corpuscular Hemoglobin 29.6 pg (26-34); Mean Corpuscular Volume 94.9 fl (80-100); Platelet Count Result 208 k/mm3 (150-375); Red Blood Count 2.77 M/mm3 (4.2-5.4); Red Cell Distribution Width 13.7 % (11.5-14.5); White Blood Count 6.9 K/mm3 (4.5-10.0)
[2022-10-30 05:51] LABS: Anion Gap 1 mmol/L (8-16); Blood Urea Nitrogen 10 mg/dL (7-17); Calcium 8.8 mg/dL (8.4-10.2); Carbon Dioxide 33 mmol/L (22-30); Chloride 100 mmol/L (98-107); Estimated CRCL calculation 112 ml/min; Estimated Glomerular Filt Rate > 60; Glucose 128 mg/dL (65-110); Potassium 4.7 mmol/L (3.4-5.0); Sodium 134 mmol/L (137-145)
[2022-10-30] MEDS: LEVOTHYROXINE SODIUM 100 MCG TABLET 200 MCG PO (06:46)
[2022-10-30] MEDS: IBUPROFEN 400 MG TABLET 800 MG PO ×2 (06:46→13:51)
[2022-10-30] MEDS: ENOXAPARIN 40 MG/0.4 ML SYRINGE SUB-Q (08:29)
[2022-10-30] MEDS: LOSARTAN POTASSIUM 50 MG TABLET PO (08:29)
[2022-10-30] MEDS: ALVIMOPAN 12 MG CAPSULE PO (08:29)
[2022-10-30] MEDS: polyethylene glycoL 3350 17 GM POWD.PACK PO (08:29)
[2022-10-30] MEDS: BETAMETHASONE/CLOTRIMAZOLE CR 15 GM TUBE 1 APPLIC TOPICAL (08:30)
[2022-10-30 13:50] VITALS: BP 108/69; PULSE 94; RESP 18; TEMP 36.4; O2SAT 99
--- NOTE | 2022-10-30 14:49 | PM.DS ---
DS: Admitting Diagnosis Discharge Date 10/30/2022 Admitting Diagnosis Incarcerated incisional hernia DS: Discharge Diagnosis Discharge Diagnosis (1) Incarcerated incisional hernia: Code(s): K43.0 - Incisional hernia with obstruction, without gangrene Status: Acute (2) Acute blood loss anemia: Code(s): D62 - Acute posthemorrhagic anemia Status: Acute DS: Summary Hospital Course Reason for hospitalization: Incarcerated incisional hernia Hospital Course: This is a 62-year-old woman who underwent open incarcerated incisional hernia repair with mesh, bilateral component separation on 10/26/2022. She was admitted to the hospital postoperatively due to the complexity of the surgery and anticipated prolonged recovery. She had 3 drains placed at the time of the surgery, 2 drains were placed in the retrorectus space and 1 drain was placed in the subcutaneous space where the previous hernia sac was. She received Entereg preoperatively and this was continued postoperatively to help prevent narcotic induced ileus/constipation. She was kept on a clear liquid diet initially and activity was very slowly advanced. She had a Courtney catheter in place to continue monitoring urine output while she was fairly mobile. On postop day 1 her pain was controlled with IV and oral pain meds. She was advanced to a full liquid diet. Courtney catheter was removed. She was allowed to get up out of chair and ambulate with a walker. On postoperative day 2 she was advanced to a regular diet. DILEEP drain output remained slightly serosanguineous fairly minimal. On postoperative day 3 her hemoglobin had dropped down to 8.2 from 12.2 preoperatively. This was likely a combination of hemodilution with IV fluids for several days as well as acute blood loss during the surgery. She did not appear to any signs of continued active bleeding and was remaining stable. Her retro rectus Josafat drains were removed on 10/29. The subcutaneous drain was left in place. On postoperative day 5, her pain was well controlled, she was ambulating in the halls, and her bowels were moving. Her hemoglobin remained stable at 8.2. The subcutaneous drain was left in place and she was given instruction for drain care at home. She was discharged 10/30. Status at Discharge Functional status at discharge: uses cane/walker Overall status at discharge: patient is progressing back to baseline Time Spent with Patient Time attestation: Total time spent providing and/or coordinating discharge services: Time spent: Less than 30 minutes Exam Resp: Effort & Inspection: normal respiratory effort Auscultation: clear to auscultation bilaterally Cardio: Rate: regular rate Rhythm: regular rhythm Heart sounds: S1 normal heart sound present and S2 normal heart sound present GI: Inspection: non-distended, incision ( Intact with marcela) and other ( DILEEP with minimal serosanguineous output) GI Palp: Yes Soft to palpation, Yes Tenderness to palpation present (GI) ( incisional), No Guarding due to palpation present (GI), No Hernia present and No Rebound tenderness present Auscultation: normal bowel sounds DS: Data Data Completed and Pending Completed studies during hospitalization: Pending at discharge 10/26/22 09:09 Surgical [PTH] Routine Labs on day of discharge: Labs from last 24 hours 10/30/22 10/30/22 05:15 05:15 WBC 6.9 RBC 2.77 L Hgb 8.2 L Hct 26.3 L MCV 94.9 MCH 29.6 MCHC 31.2 L RDW 13.7 Plt Count 208 MPV 10.0 Sodium 134 L Potassium 4.7 Chloride 100 Carbon Dioxide 33 H Anion Gap 1 L BUN 10 Creatinine 0.70 Estim Creat Clear Calc 112 Estimated GFR > 60 Glucose 128 H Calcium 8.8 Discharge Plan Discharge Attending physician on discharge: David Pulido Discharging Clinician: David Pulido Patient Disposition: Home, Self-Care Activity: other - see discharge instructions Diet:
== END 2022-10-30 14:30 | disposition home or self-care (01) | DRG 354 ==
LOC: ANH2MED 15:13
PROVIDERS: Admitting Provider Surgery; PCP Family Medicine; Visit Provider Surgery
PROC: 0WQF0ZZ Repair Abdominal Wall, Open Approach (ICD-10-PCS; principal; 2022-10-26 08:00)
DX: K43.0 Incisional hernia with obstruction, without gangrene (principal); D62 Acute posthemorrhagic anemia; Z68.43 Body mass index [BMI] 50.0-59.9, adult; I10 Essential (primary) hypertension; E78.5 Hyperlipidemia, unspecified; K21.9 Gastro-esophageal reflux disease without esophagitis; E03.9 Hypothyroidism, unspecified; F41.9 Anxiety disorder, unspecified; F32.A Depression, unspecified; E11.9 Type 2 diabetes mellitus without complications; K44.9 Diaphragmatic hernia without obstruction or gangrene; E66.01 Morbid (severe) obesity due to excess calories; Z90.49 Acquired absence of other specified parts of digestive tract; Z90.710 Acquired absence of both cervix and uterus; Z90.722 Acquired absence of ovaries, bilateral; Z98.84 Bariatric surgery status; Z87.891 Personal history of nicotine dependence
CPT/HCPCS: 36415; 80048; 85025; 85027; 88302; A9270; C1781; C9290; J0131; J0330; J1100; J1170; J1650; J1741; J1885; J2250; J2270; J2405; J2704; J7120

== ENCOUNTER → 2023-02-03 12:34 | Outpatient (CLI) | payer BC, SELFPAY ==
--- NOTE | ~2023-02-03 | CT_ITS ---
EXAMINATION: CT abdomen pelvis wo con DATE: 02/03/2023 12:49 INDICATION: Postoperative seroma TECHNIQUE: Computed tomography (CT) of the abdomen and pelvis was performed without intravenous contr ast. Automated exposure control and iterative reconstruction technique were employed. Exam dose: 107 4.91 mGy-cm total exam DLP. COMPARISON: 02/11/2022 CT abdomen pelvis FINDINGS: The lung bases are clear of consolidation. Heart size is within normal limits. No pericardi al or pleural effusion. Small sliding hiatal hernia. Status post gastric bypass surgery. Status post cholecystectomy. The liver, spleen, pancreas and left adrenal gland are unremarkable. Right adrenal myelolipoma is aga in noted. The kidneys are unremarkable. No urinary tract calculus or hydroureteronephrosis. The urinary bladder is unremarkable. Status post hysterectomy. There is a suture line of the distal sigmoid colon. Diverticulosis of the left and right colon; no CT evidence of diverticulitis. Status post ventral abdominal wall hernia repair. There is prominent soft tissue stranding but no matthew arent fluid collection along the surgical scar. IMPRESSION: Soft tissue scarring along the ventral abdominal wall at the site of the prior ventral a bdominal wall hernia; no residual herniation is noted Postoperative change of the sigmoid colon Gastric bypass surgery Status post cholecystectomy Status post hysterectomy. Small sliding hiatal hernia Diverticulosis of the colon; no evidence of diverticulitis Reviewed, dictated and finalized at [facility]. Reviewed, dictated and finalized at [facility]. IMPRESSION: Soft tissue scarring along the ventral abdominal wall at the site of the prior ventral abdominal wall hernia; no residual herniation is noted Postoperative change of the sigmoid colon Gastric bypass surgery Status post cholecystectomy Status post hysterectomy. Small sliding hiatal hernia Diverticulosis of the colon; no evidence of diverticulitis
== END ==
PROVIDERS: PCP Family Medicine; Visit Provider Surgery
DX: L76.34 Postprocedural seroma of skin and subcutaneous tissue following other procedure (principal); Z98.890 Other specified postprocedural states; Z87.19 Personal history of other diseases of the digestive system; Z90.49 Acquired absence of other specified parts of digestive tract; Z98.84 Bariatric surgery status; K44.9 Diaphragmatic hernia without obstruction or gangrene; K57.30 Diverticulosis of large intestine without perforation or abscess without bleeding
CPT/HCPCS: 74176

== ENCOUNTER 2024-01-19 13:16 | Outpatient (CLI) | payer BC, SELFPAY ==
--- NOTE | ~2024-01-19 | MM_ITS ---
EXAMINATION: MM screening janine BI w patsy HISTORY: Screening mammogram TECHNIQUE: Craniocaudal and mediolateral oblique 3-D tomosynthesis images were obtained and synthetic 2-D images were generated. CAD analysis was submitted and interpreted. COMPARISON: No prior mammogram is available for comparison at this institution. BREAST PARENCHYMAL COMPOSITION: The breasts are almost entirely fatty. FINDINGS: There is no evidence of suspicious mass, calcification, or architectural distortion to sugg est malignancy in either breast. There has been no suspicious interval change. IMPRESSION: 1. No mammographic evidence of malignancy. 2. Recommend routine screening mammography in one year. BI-RADS Category 1: Negative Reviewed, dictated and finalized at [facility].
== END 2024-01-19 13:17 ==
LOC: MICIMG 13:16
PROVIDERS: PCP Physician Assistant; Visit Provider Physician Assistant
DX: Z12.31 Encounter for screening mammogram for malignant neoplasm of breast (principal)
CPT/HCPCS: 77063; 77067

== ENCOUNTER 2024-02-26 07:55 | Emergency (ER) | payer BC, SELFPAY ==
[2024-02-26] VITALS (15 sets, daily range): BP systolic 120–137; BP diastolic 75–91; PULSE 99; RESP 15; TEMP 36.5; O2SAT 93–100
--- NOTE | ~2024-02-26 | CT_ITS ---
EXAMINATION: CT abdomen pelvis w con DATE: 02/26/2024 09:04 INDICATION: Abdominal pain TECHNIQUE: Computed tomography (CT) of the abdomen and pelvis was performed with 100 cc Omnipaque 350 intravenous contrast. The dose-length product was 1509.36 mGy-cm. Automated exposure control and ite rative reconstruction technique were employed. COMPARISON: None. FINDINGS: Heart size normal. There are changes of gastric bypass surgery with small hernia. No signif icant pleural or pericardial effusion. There is a 1.6 cm low-density mass of the left adrenal gland, most likely benign adenoma. Status post cholecystectomy with expected prominence of the bile ducts. T he spleen, pancreas, and kidneys are unremarkable. There is a 2.8 cm right adrenal myelolipoma. There are midline surgical incision changes in the anterior abdominal wall. Nonobstructive bowel pattern. No free air or free fluid. There is a colonic anastomosis in the pelvis. No significant vascular abno rmality. Severe lumbar spondylosis. IMPRESSION: 1. No acute abdominal abnormality. 2: Right adrenal myelolipoma measuring 2.8 cm. Low density left adrenal mass measuring 1.6 cm, most l ikely benign adenoma. Reviewed, dictated and finalized at location B. IMPRESSION: 1. No acute abdominal abnormality. 2: Right adrenal myelolipoma measuring 2.8 cm. Low density left adrenal mass me asuring 1.6 cm, most likely benign adenoma.
[2024-02-26 08:33] LABS: Basophils Percent Auto 0.4 % (0.2-1.2); Eosinophils Absolute Auto 0.2 K/mm3 (0-0.3); Eosinophils Percent Auto 2.5 % (0-4.4); Hemoglobin 13.3 g/dL (12.0-15.0); Immature Granulocyte Absolute 0.03 K/mm3 (0.00-0.031); Immature Granulocyte Percent A 0.4 % (0-0.5); Lymphocytes Absolute Auto 1.39 K/mm3 (0.9-3.2); Lymphocytes Percent Auto 19.4 % (18.3-44.2); Mean Corpuscular HGB Conc 32.4 g/dl (32-36); Mean Corpuscular Hemoglobin 29.2 pg (26-34); Mean Corpuscular Volume 90.1 fl (80-100); Mean Platelet Volume 9.8 fl (7.4-10.4); Monocytes Absolute Auto 0.5 K/mm3 (0.1-0.6); Neutrophils Absolute Auto 5.1 K/mm3 (1.3-6.7); Neutrophils Percent Auto 70.3 % (45.5-73.1); Platelet Count Result 258 k/mm3 (150-375); Red Blood Count 4.55 M/mm3 (4.2-5.4); Red Cell Distribution Width 13.4 % (11.5-14.5); White Blood Count 7.2 K/mm3 (4.5-10.0)
[2024-02-26 08:47] LABS: Alanine Aminotransferase 18 U/L (6-35); Albumin Level 4.6 g/dL (3.5-5.1); Alkaline Phosphatase 77 U/L (38-126); Anion Gap 4 mmol/L (4-12); Aspartate Amino Transferase 22 U/L (14-36); Bilirubin,Total 0.8 mg/dL (0.2-1.3); Blood Urea Nitrogen 17 mg/dL (7-17); Calcium 9.6 mg/dL (8.4-10.2); Carbon Dioxide 29 mmol/L (22-30); Chloride 103 mmol/L (98-107); Estimated CRCL calculation 96 ml/min; Estimated Glomerular Filt Rate > 60; Glucose 105 mg/dL (65-110); Lipase 74 U/L (23-300); Potassium 3.9 mmol/L (3.4-5.0); Sodium 136 mmol/L (137-145)
--- NOTE | 2024-02-26 09:42 | ED.ABDPAIN ---
HPI - Abdominal Pain General Chief Complaint: Abdominal Pain Stated Complaint: abd pain, bowel issues,pt states DR arciniega CT scan, Time Seen by Provider: 02/26/24 08:41 History of Present Illness HPI narrative: Pt presents with lower abdominal pain for a few days. Pt has a history of colon perforation and partial colectomy and colostomy which ahs been taken down in the past. Pt also just started on ozempic. Pt feels constipated as well. Pt called DR Pulido who did her surgery and he advised she come to the ED for evaluation. Related Data Home Medications Medication Instructions Recorded Confirmed calcium carbonate 400 mg PO DAILY 01/14/22 09/19/23 cholecalciferol (vitamin D3) 50 50 mcg PO DAILY 02/03/22 09/19/23 mcg (2,000 unit) capsule lactobacillus combination no.9 4 4,000 mmu cells PO DAILY 02/03/22 09/19/23 billion cell capsule (Adult 50 Plus Probiotic) mecobalamin (vitamin B12) 1,000 1,000 mcg PO DAILY 02/03/22 09/19/23 mcg chewable tablet multivitamin 1 tablet PO DAILY 02/03/22 09/19/23 Allergies Allergy/AdvReac Type Severity Reaction Status Date / Time ciprofloxacin Allergy Severe Anaphylaxis Verified 02/26/24 07:57 cephalexin Allergy Unknown Unknown Verified 02/26/24 07:57 fluoxetine Allergy Unknown Unknown Verified 02/26/24 07:57 meperidine Allergy Unknown Difficulty Verified 02/26/24 07:57 breathing/anxiety attack Penicillins Allergy Unknown Unknown Verified 02/26/24 07:57 Quinolones Allergy Unknown Unknown Verified 02/26/24 07:57 Review of Systems Review of Systems: All systems reviewed & are unremarkable except as noted in HPI and below PMFSH Past Medical History Medical History Acquired pes planovalgus of left foot Anxiety Arthritis of knee, left Depression Diverticulitis (~12/2002) Dyslipidemia Encounter for immunization Essential (primary) hypertension GERD (gastroesophageal reflux disease) Hiatal hernia History of diverticulitis Hypothyroidism Type 2 diabetes mellitus without complications Surgical History Surgical History H/O bariatric surgery 2020 per patient questionnaire History of delivery History of cholecystectomy 2015 History of incisional hernia repair Open incisional hernia repair w/ mesh bilateral component separation on 10/21/22. History of knee surgery History of lumbosacral spine surgery 2013 History of partial colectomy 01/2016 - secondary to perforated diverticulitis History of total abdominal hysterectomy and bilateral salpingo-oophorectomy 1996 Hx of tonsillectomy Family History Family History Mother Family history of osteoporosis Family history of mental disorder Family history of colonic diverticulitis Hypertension Cerebrovascular accident Diabetes mellitus Father Cerebrovascular accident Family history of lung cancer Family history of glaucoma Other Family history of arthritis Family history of cardiovascular disease Family history of heart disease in male family member before age 55 Social History Social History Smoking packs per day: 1 Smoking cigarettes per day: 20.0 Years smoked: 35 Smoking pack-years: 35.00 Smoking status: Former smoker Tobacco type: cigarettes Smoking end date: 11/06/12 Additional smoking assessment comments: 3 PACKS A DAY LAST COUPLE YRS OF SMOKING Alcohol intake: current Alcohol use details: VERY RARE Substance use: never Substance use type: does not use Lack of Transportation: No Lack of Food: Never True Current Housing: I Do Not Have Housing Concerned About Future Housing: No Difficulty Paying Gas/Electric Bills: No Difficulty Paying for Meds: No Currently Unemployed: No Education: High School Diploma/GED Difficulty
[2024-02-26 10:28] LABS: Appearance Urine Clear (Clear); Bacteria Urine 2+ /hpf; Bilirubin Urine Negative (Negative); Blood Urine Negative (Negative); Color Urine Yellow (Yellow); Glucose Urine UA Negative (Negative); Ketones Urine Negative (Negative); Leukocyte Esterase Ur 1+ LEU/UL (Negative); Need Manual Microscopic Reviewed; Nitrate Urine Negative (Negative); Non Pathogenic Casts 0-2; Protein Urine Negative (Negative); RBC Urine 0-2 /hpf (0-2); Squamous Epithelial Cell Urine Few /hpf (Few); Urobilinogen Urine 0.2 mg/dL (<2.0); pH Urine 7.5 (5.0-9.0)
[2024-02-26 10:31] LABS: Add Urine Microscopic? YES
== END 2024-02-26 11:14 | disposition home or self-care (01) ==
PROVIDERS: Emergency Provider Emergency Medicine; PCP Physician Assistant
DX: N39.0 Urinary tract infection, site not specified (principal); I10 Essential (primary) hypertension; E11.9 Type 2 diabetes mellitus without complications; E78.5 Hyperlipidemia, unspecified; E03.9 Hypothyroidism, unspecified; K21.9 Gastro-esophageal reflux disease without esophagitis; M17.12 Unilateral primary osteoarthritis, left knee; Z98.84 Bariatric surgery status; Z87.891 Personal history of nicotine dependence; Z90.49 Acquired absence of other specified parts of digestive tract; Z90.710 Acquired absence of both cervix and uterus; Z79.85 Long-term (current) use of injectable non-insulin antidiabetic drugs; D17.79 Benign lipomatous neoplasm of other sites; E27.8 Other specified disorders of adrenal gland
CPT/HCPCS: 36415; 74177; 80053; 81001; 83690; 85025; 87086; 87088; 99284; Q9967

== ENCOUNTER 2024-03-13 02:14 | Day surgery (SDC) | payer BC, SELFPAY ==
[2024-03-12 10:17] VITALS: BMI 40.8
--- NOTE | 2024-03-12 10:18 | PC.NURSE ---
Report to the Outpatient Waiting Room, entrance under the green pavilion located off [facility], at time _0630_ on date _[id number]_. Planned Procedure Time: _0830_. Time changes happen often and if your time is changed the preop area will call you the afternoon before. - You and your visitor will be asked to self-screen and do not enter if you have any COVID symptoms. - A mask is optional within the hospital at this time. Patients may have clear liquids (water, carbonated beverages, clear teas, apple juice) until 3 hours prior to surgery with a maximum of 20 ounces. - No food from midnight until time of surgery Take the following medications with a SIP of water the morning of surgery: ___Levothyroxine and Escitalopram DO NOT STOP ANY OF YOUR OTHER PRESCRIPTION MEDICATIONS PRIOR TO SURGERY ?EXCEPT THE FOLLOWING Medications to discontinue per physician Do not take Semaglutide till after surgery. Date to take last dose__Last dose taken [id number] Please no make-up, nail canadian, hairspray, perfume, deodorant, or body powder the day of surgery. No jewelry (including any body piercings) or valuables the day of surgery, leave them at home. Please take a shower or bath the night before, or the morning of, surgery with an antibacterial soap. Wear comfortable, loose fitting clothing. - Jewelry must be removed prior to entering the operating room. Rings and piercings that are not removed may be cut off. - The hospital will not accept responsibility for valuables. - Please leave all valuables, including medications, at home the day of surgery. If you are going home after surgery, a licensed service car driver must drive you home. - NO public transportation without another adult if you receive anesthesia. - We recommend that an adult stay with you for 24 hours following discharge. - We also recommend that you do not drive, make important decision, drink alcoholic beverages, or take any drugs that were not prescribed by your health care provider for at least 24 hours after your discharge time. Follow any additional instructions given to you from your surgeon. If you or anyone in your household have experienced Covid symptoms in the past week, please notify your surgeon or the nurse liaison at the phone number below for possible testing. Telephone instructions given to __Dawn____and asked if any additional questions and then verbalized understanding. Patient advised to call surgeon office or pre surgery nurse liaison [phone] if any additional questions.
--- NOTE | 2024-03-12 10:33 | PC.NURSE ---
Report to the Outpatient Waiting Room, entrance under the green pavilion located off [facility], at time _0630_ on date _[id number]_. Planned Procedure Time: _0830_. Time changes happen often and if your time is changed the preop area will call you the afternoon before. - You and your visitor will be asked to self-screen and do not enter if you have any COVID symptoms. - A mask is optional within the hospital at this time. - No food or drink from midnight until time of surgery Take the following medications with a SIP of water the morning of surgery: ____Escitalopram and Levothyroxine DO NOT STOP ANY OF YOUR OTHER PRESCRIPTION MEDICATIONS PRIOR TO SURGERY ?EXCEPT THE FOLLOWING Medications to discontinue per physician ____No Ozempic till after surgery, Last dose taken [id number] Date to take last dose Please no make-up, nail ivorian, hairspray, perfume, deodorant, or body powder the day of surgery. No jewelry (including any body piercings) or valuables the day of surgery, leave them at home. Please take a shower or bath the night before, or the morning of, surgery with an antibacterial soap. Wear comfortable, loose fitting clothing. - Jewelry must be removed prior to entering the operating room. Rings and piercings that are not removed may be cut off. - The hospital will not accept responsibility for valuables. - Please leave all valuables, including medications, at home the day of surgery. If you are going home after surgery, a licensed boom truck driver must drive you home. - NO public transportation without another adult if you receive anesthesia. - We recommend that an adult stay with you for 24 hours following discharge. - We also recommend that you do not drive, make important decision, drink alcoholic beverages, or take any drugs that were not prescribed by your health care provider for at least 24 hours after your discharge time. Follow any additional instructions given to you from your surgeon. If you or anyone in your household have experienced Covid symptoms in the past week, please notify your surgeon or the nurse liaison at the phone number below for possible testing. Telephone instructions given to __Dawn___and asked if any additional questions and then verbalized understanding. Patient advised to call surgeon office or pre surgery nurse liaison [phone] if any additional questions.
[2024-03-13 07:31] VITALS: BMI 40.0
[2024-03-13] MEDS: LACTATED RINGERS 1,000 ML 30 ML IV CONT (07:55)
[2024-03-13] MEDS: ACETAMINOPHEN 500 MG TABLET 1000 MG PO (08:01)
[2024-03-13] MEDS: KETOROLAC 15 MG/ML VIAL (*BKC) IV PUSH (08:01)
[2024-03-13 08:06] VITALS: BP 119/75; PULSE 97; RESP 16; TEMP 36.7; O2SAT 100
--- NOTE | 2024-03-13 08:24 | PM.IMHP ---
H&P: HPI History of Present Illness Date/Time: 03/13/24 08:24 Chief Complaint: fecal impaction Narrative: 63 yo woman presents with fecal impaction. She has been trying Fleets enemas and magnesium citrate with no relief. She still feels a hard ball of stool that she cannot get out. Review of Systems Review of Systems: All systems reviewed & are unremarkable except as noted in HPI and below Constitutional: Constitutional: Denies chills, Denies fever(s), Denies headache(s) and Denies weight loss Eyes: Eyes: Denies change in vision ENT: Denies dizziness, Denies headache(s), Denies neck mass and Denies throat swelling Cardiovascular: Cardiovascular: Denies chest pain, Denies lightheadedness and Denies dyspnea Respiratory: Respiratory: Denies cough, Denies dyspnea and Denies wheezing Gastrointestinal: Gastrointestinal: Denies abdominal pain, Denies change in bowel habits, Denies nausea and Denies vomiting Genitourinary: Genitourinary: Denies hematuria and Denies dysuria Musculoskeletal: Musculoskeletal: Reports as per HPI Integumentary/Breasts: Skin/Breast: Reports as per HPI Neurologic: Denies dizziness and Denies headache(s) Allergic/Immunologic: Allergic/Immunologic: Denies throat swelling and Denies wheezing PMF Past Medical History Medical History Acquired pes planovalgus of left foot Anxiety Arthritis of knee, left Depression Diverticulitis (~12/2002) Dyslipidemia Encounter for immunization Essential (primary) hypertension GERD (gastroesophageal reflux disease) Hiatal hernia History of diverticulitis Hypothyroidism Type 2 diabetes mellitus without complications Surgical History Surgical History H/O bariatric surgery 2020 per patient questionnaire History of delivery History of cholecystectomy 2015 History of incisional hernia repair Open incisional hernia repair w/ mesh bilateral component separation on 10/21/22. History of knee surgery History of lumbosacral spine surgery 2013 History of partial colectomy 01/2016 - secondary to perforated diverticulitis History of total abdominal hysterectomy and bilateral salpingo-oophorectomy 1996 Hx of tonsillectomy Family History Family History Mother Family history of osteoporosis Family history of mental disorder Family history of colonic diverticulitis Hypertension Cerebrovascular accident Diabetes mellitus Father Cerebrovascular accident Family history of lung cancer Family history of glaucoma Other Family history of arthritis Family history of cardiovascular disease Family history of heart disease in male family member before age 55 Social History Social History (Updated 03/08/24 @ 09:45 by Katherine Lucero MA) Smoking packs per day: 1 Smoking cigarettes per day: 20.0 Years smoked: 35 Smoking pack-years: 35.00 Smoking status: Former smoker Tobacco type: cigarettes Smoking end date: 03/12/13 Additional smoking assessment comments: quit vaping in 2016 Alcohol intake: current Alcohol use details: VERY RARE Substance use: never Substance use type: does not use Do You Feel Safe in your Home?: Yes Lack of Transportation: No Lack of Food: Never True Current Housing: I Have Housing Concerned About Future Housing: No Difficulty Paying Gas/Electric Bills: No Difficulty Paying for Meds: No Currently Unemployed: No Education: Associate Degree Difficulty w/ Childcare or Family Care: No Living arrangements: with family Occupation/Education: occupation 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
--- NOTE | 2024-03-13 08:27 | WPDHPUPDATE1 ---
History and Physical Update Update Date/Time: 03/13/24 08:27 History and Physical has been reviewed, including an updated exam of the patient. There are NO changes in the patient's condition. Risks, benefits, and alternatives have been discussed and questions answered. Patient agrees to proceed with procedure.
--- NOTE | 2024-03-13 09:25 | WPDANESEPPF ---
Anes - Initial Pre Proc Eval Procedure: Operation Date: 03/13/24 09:30 Proposed Procedures p Rectal Examination Under Anesthesia, Manual Disimpaction - David Pulido DO Date/Time: 03/13/24 09:25 Surgeon: David Pulido DO Pre Op Diagnosis: fecal impaction Patient Data Age: 63 Gender: F Height: 1.7 m Weight: 116 kg Last Vital Signs Temp 36.7 C 03/13/24 08:06 Pulse 97 03/13/24 08:06 Resp 16 03/13/24 08:06 BP 119/75 03/13/24 08:06 Pulse Ox 100 03/13/24 08:06 O2 Del Method Room Air 03/13/24 08:06 Allergies Allergy/AdvReac Type Severity Reaction Status Date / Time ciprofloxacin Allergy Severe Anaphylaxis Verified 03/13/24 07:49 cephalexin Allergy Unknown Unknown Verified 03/13/24 07:49 fluoxetine Allergy Unknown Unknown Verified 03/13/24 07:49 meperidine Allergy Unknown Difficulty Verified 03/13/24 07:49 breathing/anxiety attack Penicillins Allergy Unknown Unknown Verified 03/13/24 07:49 Quinolones Allergy Unknown Unknown Verified 03/13/24 07:49 Home Medications Medication Instructions Recorded Confirmed Type calcium carbonate 400 mg PO DAILY 01/14/22 03/12/24 History cholecalciferol (vitamin D3) 50 50 mcg PO DAILY 02/03/22 03/12/24 History mcg (2,000 unit) capsule lactobacillus combination no.9 4 4,000 mmu cells PO DAILY 02/03/22 03/12/24 History billion cell capsule (Adult 50 Plus Probiotic) mecobalamin (vitamin B12) 1,000 1,000 mcg PO DAILY 02/03/22 03/12/24 History mcg chewable tablet multivitamin 1 tablet PO DAILY 02/03/22 03/12/24 History semaglutide 2 mg/dose (8 mg/3 mL) See Rx Instructions .Route 07/15/23 03/13/24 Rx subcutaneous pen injector (Ozempic) .COMPLEX #3 mL losartan 50 mg tablet See Rx Instructions .Route 09/29/23 03/12/24 Rx .COMPLEX #30 tabs lorazepam 0.5 mg tablet 0.5 mg PO DAILY PRN anxiety #30 02/19/24 03/12/24 Rx tabs levothyroxine 200 mcg tablet 200 mcg PO DAILY #90 tabs 03/03/24 03/13/24 Rx escitalopram oxalate 10 mg tablet 10 mg PO DAILY #30 tabs 03/04/24 03/13/24 Rx Patient hx anesthesia problems: none Family hx anesthesia problems: none Results Review: All pre-operative results and documents have been reviewed as part of the pre-operative evaluation. [facility] Past Medical History Medical History Acquired pes planovalgus of left foot Anxiety Arthritis of knee, left Depression Diverticulitis (~12/2002) Dyslipidemia Encounter for immunization Essential (primary) hypertension GERD (gastroesophageal reflux disease) Hiatal hernia History of diverticulitis Hypothyroidism Type 2 diabetes mellitus without complications Surgical History Surgical History H/O bariatric surgery 2020 per patient questionnaire History of delivery History of cholecystectomy 2015 History of incisional hernia repair Open incisional hernia repair w/ mesh bilateral component separation on 10/21/22. History of knee surgery History of lumbosacral spine surgery 2013 History of partial colectomy 01/2016 - secondary to perforated diverticulitis History of total abdominal hysterectomy and bilateral salpingo-oophorectomy 1996 Hx of tonsillectomy Family History Family History Mother Family history of osteoporosis Family history of mental disorder Family history of colonic diverticulitis Hypertension Cerebrovascular accident Diabetes mellitus Father Cerebrovascular accident Family history of lung cancer Family history of glaucoma Other Family history of arthritis Family history of cardiovascular disease Family history of heart disease in male family member before age 55 Social History Social History Smoking packs per day: 1 Smoking cigarettes per day: 20.0 Years smoked:
[2024-03-13] MEDS: ceFAZolin SODIUM 1 GM VIAL 2 GM IV PUSH (10:15)
--- NOTE | 2024-03-13 10:20 | W.PM.PROC2 ---
Procedure Note - Detailed Date of Procedure 03/13/24 Pre-op Diagnosis fecal impaction Post-op Diagnosis Same Procedure Performed Rectal exam under anesthesia with manual fecal disimpaction Surgeon David Pulido, DO Anesthesia MAC Indications This is a 63-year-old woman who presented with a fecal impaction. She has been experiencing obstipation and difficulty with having bowel movements. She has been trying to take laxatives and enemas and is having some liquid stool around the impaction, but she has not had complete relief. Discussions were made with the patient about treatment options and decision was made to proceed with rectal exam under anesthesia with manual disimpaction. Findings Rectal exam under anesthesia was performed. The patient was found to have several firm pieces of stool within the rectal vault. These were able to be gently disimpacted manually with a finger. I then inserted a Hill-Jang anoscope and did not identify any other significant abnormalities within the rectum. No further hard stool was palpable after conclusion. Description of Procedure Procedure as well as risks, benefits, and alternatives were discussed with the patient. Written consent was obtained and placed in chart prior to procedure. Patient was brought back to surgical suite. She was placed supine on operating table. Time-out was done to confirm patient and procedure. IV sedation was then administered by anesthesia department. She was then repositioned into dorsal lithotomy position in stirrups. Digital rectal exam was initially performed. I then gently used finger manipulation to disimpact the hard stool within the rectum. Several pieces of stool were removed and then the rectal vault appeared empty. I then inserted a Hill-Jang anoscope and carefully inspected around the area. No other rectal abnormalities were noted. The patient was then awakened from anesthesia and transferred to recovery. Estimated Blood Loss 1 Complications No immediate complications Condition Stable Disposition Same day [facility] Billing Surgery - Charge Forward: Surgery Billing
[2024-03-13 10:21] VITALS: BP 114/79; PULSE 85; RESP 14; O2SAT 99
[2024-03-13 10:50] VITALS: BP 122/79; PULSE 81; RESP 16
[2024-03-13 11:20] VITALS: BP 125/75; PULSE 75; RESP 16
== END 2024-03-13 11:30 | disposition home or self-care (01) ==
PROVIDERS: PCP Physician Assistant; Visit Provider Surgery
PROC: (CPT 45915; principal; 2024-03-13 09:30)
DX: K56.41 Fecal impaction (principal); E78.5 Hyperlipidemia, unspecified; I10 Essential (primary) hypertension; E03.9 Hypothyroidism, unspecified; E11.9 Type 2 diabetes mellitus without complications; K21.9 Gastro-esophageal reflux disease without esophagitis; F41.9 Anxiety disorder, unspecified; F32.A Depression, unspecified; Z90.49 Acquired absence of other specified parts of digestive tract; Z87.891 Personal history of nicotine dependence; E66.01 Morbid (severe) obesity due to excess calories; Z68.41 Body mass index [BMI] 40.0-44.9, adult
CPT/HCPCS: 45915; A9270; J0690; J1885; J2250; J2405; J2704; J3010; J7120

== ENCOUNTER 2024-05-24 00:48 | Day surgery (SDC) | payer BC, SELFPAY ==
[2024-05-10 10:40] VITALS: BMI 36.6
[2024-05-24 12:57] VITALS: BMI 35.2
[2024-05-24] MEDS: LACTATED RINGERS 1,000 ML 30 ML IV CONT (13:19)
--- NOTE | 2024-05-24 13:25 | WPDANESEPPF ---
Anes - Initial Pre Proc Eval Procedure: Operation Date: 05/24/24 15:30 Proposed Procedures p Colonoscopy - Marcelo Manzano MD Date/Time: 05/24/24 13:25 Surgeon: Marcelo Manzano MD Pre Op Diagnosis: CIBH, Fecal Impaction Patient Data Age: 64 Gender: F Height: 1.7 m Weight: 101.9 kg Allergies Allergy/AdvReac Type Severity Reaction Status Date / Time ciprofloxacin Allergy Severe Anaphylaxis Verified 05/24/24 13:10 cephalexin Allergy Unknown Unknown Verified 05/24/24 13:10 fluoxetine Allergy Unknown Unknown Verified 05/24/24 13:10 meperidine Allergy Unknown Difficulty Verified 05/24/24 13:10 breathing/anxiety attack Penicillins Allergy Unknown Unknown Verified 05/24/24 13:10 Quinolones Allergy Unknown Unknown Verified 05/24/24 13:10 Home Medications Medication Instructions Recorded Confirmed Type calcium carbonate 400 mg PO DAILY 01/14/22 05/24/24 History cholecalciferol (vitamin D3) 50 50 mcg PO DAILY 02/03/22 05/24/24 History mcg (2,000 unit) capsule lactobacillus combination no.9 4 4,000 mmu cells PO DAILY 02/03/22 05/24/24 History billion cell capsule (Adult 50 Plus Probiotic) mecobalamin (vitamin B12) 1,000 1,000 mcg PO DAILY 02/03/22 05/24/24 History mcg chewable tablet multivitamin 1 tablet PO DAILY 02/03/22 05/24/24 History lorazepam 0.5 mg tablet 0.5 mg PO DAILY PRN anxiety #30 02/19/24 05/24/24 Rx tabs losartan 25 mg tablet 25 mg PO DAILY #90 tabs 03/14/24 05/24/24 Rx levothyroxine 175 mcg tablet 175 mcg PO .COMPLEX #78 tabs 04/30/24 05/24/24 Rx levothyroxine 200 mcg tablet 200 mcg PO .COMPLEX #12 tabs 04/30/24 05/24/24 Rx biotin 5,000 mcg chewable tablet 5,000 mcg PO DAILY 05/10/24 05/24/24 History escitalopram oxalate 10 mg tablet 10 mg PO DAILY 05/10/24 05/24/24 History (Lexapro) semaglutide 2 mg/dose (8 mg/3 mL) See Rx Instructions .Route 07/15/24 07/19/24 Rx subcutaneous pen injector (Ozempic) .COMPLEX #3 mL Patient hx anesthesia problems: none Family hx anesthesia problems: none Results Review: All pre-operative results and documents have been reviewed as part of the pre-operative evaluation. [facility] Past Medical History Medical History Acquired pes planovalgus of left foot Anxiety Arthritis of knee, left Depression Diverticulitis (~12/2002) Dyslipidemia Encounter for immunization Essential (primary) hypertension GERD (gastroesophageal reflux disease) Hiatal hernia History of diverticulitis Hypothyroidism Screening mammogram, encounter for Type 2 diabetes mellitus without complications Surgical History Surgical History H/O bariatric surgery 2020 per patient questionnaire History of delivery History of cholecystectomy 2015 History of incisional hernia repair Open incisional hernia repair w/ mesh bilateral component separation on 10/21/22. History of knee surgery History of lumbosacral spine surgery 2013 History of partial colectomy 01/2016 - secondary to perforated diverticulitis History of rectal surgery Rectal exam un/enedina anesthesia with manual fecal disimpaction 03/13/24 History of total abdominal hysterectomy and bilateral salpingo-oophorectomy 1996 Hx of tonsillectomy Family History Family History Mother Family history of osteoporosis Family history of mental disorder Family history of colonic diverticulitis Hypertension Cerebrovascular accident Diabetes mellitus Father Cerebrovascular accident Family history of lung cancer Family history of glaucoma Other Family history of arthritis Family history of cardiovascular disease Family history of heart disease in male family member before age 55 Social History Social History (Updated 05/07/24 @ 09:43 by BERNARDO Laguerre) Smoking packs per day: 1 Sm
--- NOTE | 2024-05-24 13:44 | PM.HPGS ---
History of Present Illness History of Present Illness Consent: Risks, benefits, and alternatives have been discussed and questions answered. Patient agrees to proceed with procedure. Chief complaint: CIBH, Fecal Impaction Narrative: Nicole Shabazz is a 64 year old female here for colonoscopy, last one about 7 years ago, She has a past medical history of partial colectomy with colostomy and reversal January 2016 secondary to perforated diverticulitis, earlier this year had fecal impaction and treated by surgery with bedside stool removal. Review of Systems Review of Systems: All systems reviewed & are unremarkable except as noted in HPI and below PMFSH Past Medical History Medical History Acquired pes planovalgus of left foot Anxiety Arthritis of knee, left Depression Diverticulitis (~12/2002) Dyslipidemia Encounter for immunization Essential (primary) hypertension GERD (gastroesophageal reflux disease) Hiatal hernia History of diverticulitis Hypothyroidism Screening mammogram, encounter for Type 2 diabetes mellitus without complications Surgical History Surgical History H/O bariatric surgery 2020 per patient questionnaire History of delivery History of cholecystectomy 2015 History of incisional hernia repair Open incisional hernia repair w/ mesh bilateral component separation on 10/21/22. History of knee surgery History of lumbosacral spine surgery 2013 History of partial colectomy 01/2016 - secondary to perforated diverticulitis History of rectal surgery Rectal exam un/enedina anesthesia with manual fecal disimpaction 03/13/24 History of total abdominal hysterectomy and bilateral salpingo-oophorectomy 1996 Hx of tonsillectomy Family History Family History Mother Family history of osteoporosis Family history of mental disorder Family history of colonic diverticulitis Hypertension Cerebrovascular accident Diabetes mellitus Father Cerebrovascular accident Family history of lung cancer Family history of glaucoma Other Family history of arthritis Family history of cardiovascular disease Family history of heart disease in male family member before age 55 Social History Social History (Updated 05/07/24 @ 09:43 by BERNARDO Laguerre) Smoking packs per day: 1 Smoking cigarettes per day: 20.0 Years smoked: 35 Smoking pack-years: 35.00 Smoking status: Former smoker Tobacco type: cigarettes Second hand tobacco smoke exposure: No Smoking end date: 03/12/13 Additional smoking assessment comments: quit vaping in 2016 Alcohol intake: current Alcohol use details: holiday Substance use: never Substance use type: does not use Do You Feel Safe in your Home?: Yes Lack of Transportation: No Lack of Food: Never True Current Housing: I Have Housing Concerned About Future Housing: No Difficulty Paying Gas/Electric Bills: No Difficulty Paying for Meds: No Currently Unemployed: No Education: Associate Degree Difficulty w/ Childcare or Family Care: No Living arrangements: with family Additional living arrangements comments: Occupation/Education: occupation 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
[2024-05-24 14:14] VITALS: BP 108/64; PULSE 93; RESP 18; O2SAT 100
[2024-05-24 14:26] VITALS: BP 130/108; PULSE 89; RESP 18; O2SAT 100
[2024-05-24 14:31] VITALS: BP 106/66; PULSE 81; RESP 18; O2SAT 100
== END 2024-05-24 14:47 | disposition home or self-care (01) ==
PROVIDERS: PCP Family Medicine; Referring Provider Nurse Practitioner; Visit Provider Internal Medicine Gastroenterology
PROC: 0DJD8ZZ Inspection of Lower Intestinal Tract, Via Natural or Artificial Opening Endoscopic (ICD-10-PCS; CPT 45378; principal; 2024-05-24 15:30)
DX: K56.41 Fecal impaction (principal); D12.3 Benign neoplasm of transverse colon; K57.30 Diverticulosis of large intestine without perforation or abscess without bleeding; K63.89 Other specified diseases of intestine; Z90.49 Acquired absence of other specified parts of digestive tract
CPT/HCPCS: 45385; 88305; J2704; J7120

== ENCOUNTER 2024-12-21 21:45 | Emergency (ER) | payer BC, SELFPAY ==
--- NOTE | ~2024-12-21 | CT_ITS ---
History: Fall PROCEDURE: CT head without contrast. COMPARISON: None TECHNIQUE: Axial imaging of the head performed from the skull base to the vertex without IV contrast. Sagittal a nd coronal reformations obtained. DLP: 681 mGy-cm FINDINGS: The ventricles are normal in size, shape and position. There is no mass, mass effect or midline shift. There is no abnormal extra-axial fluid collection or intracranial hemorrhage. Visualized paranasal sinuses are clear. The mastoid air cells are well aerated. No acute displaced fractures within the overlying cranium. Impression: No acute intracranial hemorrhage or suspicious mass effect. Reviewed, dictated and finalized at location A. F [employer] Impression: No acute intracranial hemorrhage or suspicious mass effect.
--- NOTE | ~2024-12-21 | CT_ITS ---
History: Fall PROCEDURE: CT cervical spine and facial bones without intravenous contrast. COMPARISON: None TECHNIQUE: Multiple contiguous axial images of the cervical spine and facial bones were performed without the ad ministration of intravenous contrast. DLP: 550 mGy-cm FINDINGS: Preservation or of the normal curvature of the cervical spine is identified. Degenerative disease is identified with ossification of the posterior longitudinal ligament. No acute cervical spine fractures are present. Biapical scarring. No soft tissue abnormality is present. The airway is patent. No acute facial bone fracture is appreciated. Significant soft tissue swelling without underlying fracture of the nasal bones. Impression: Significant degenerative disease within the cervical spine without acute fracture. No acute facial bone fracture is detected. Reviewed, dictated and finalized at location A. [employer]WIFE Impression: Significant degenerative disease within the cervical spine without acute fractu re. No acute facial bone fracture is detected.
[2024-12-21 21:47] VITALS: BP 127/107; PULSE 84; RESP 16; TEMP 36.5; O2SAT 94
--- OUTSIDE RECORDS SUMMARY | 2024-12-21 21:47 | XMS_ITS | Clinical Summary ---
Author Organization [facility] Address [address] [place] [address] Phone Care Team Providers Care Hospital Account Liaison Name Role Phone Dionicio Farias MD Primary Care Provider [phone] Manjeet Stephenson DO Unavailable [phone] Allergies Active Allergy Reactions Criticality Noted Date Comments Adhesive Tape Unknown 01/26/2016 Ciprofloxacin Other (see Comments) 01/22/2016 CIPRO AND ANYTHING IN THAT CLASS/ TONGUE TURNED BLACK OPEN SORES Meperidine Unknown 01/22/2016 Medications polyethylene glycol (MIRALAX) Powder Mix the entire bottle with 64 oz of a clear liquid. Use as directed by the office for colonoscopy prep. 255 g 0 6 Active citalopram (CELEXA) 20 MG Tablet Take 20 mg by mouth daily. Active levothyroxine (SYNTHROID) 200 MCG Tablet Take 200 mcg by mouth daily. Active levothyroxine (SYNTHROID) 75 MCG Tablet Take 75 mcg by mouth daily. Active losartan (COZAAR) 50 MG Tablet Take 50 mg by mouth daily. Active omeprazole (PRILOSEC) 20 MG CAPSULE DELAYED RELEASE Take 20 mg by mouth daily. Active Zafirlukast 10 MG Tablet Take 10 mg by mouth daily. Active polyethylene glycol (MIRALAX) Powder Mix the entire bottle with 64 oz of a clear liquid. Use as directed by the office for colonoscopy prep. 255 g 0 6 Active Active Problems No known active problems Family History Medical History Relation Name Comments Arrhythmia Father Glaucoma Father Lung Cancer Father Relation Name Status Comments Father Mother Alive Social History Tobacco Use Types Packs/Day Years Used Date Smoking Tobacco: Former Cigarettes 2 30 Smokeless Tobacco: Former Quit: 11/27/2015 Tobacco Cessation:Counseling Given: Yes Alcohol Use Standard Drinks/Week Comments No 0 (1 standard drink = 0.6 oz pur e alcohol) Comments No Sex and Gender Information Value Date Recorded Sex Assigned at Not on file Legal Sex Female 11:38 PM CDT Gender Identity Not on file Sexual Orientation Not on file Last Filed Vital Signs Vital Sign Reading Time Taken Comments Blood Pressure 115/68 01/26/2016 7:00 AM CDT Pulse 118 01/25/2016 11:57 PM CDT Temperature 37 C (98.6 F) 01/26/2016 7:00 AM CDT Respiratory Rate 12 01/26/2016 7:00 AM CDT Oxygen Saturation 94% 01/26/2016 7:00 AM CDT Inhaled Oxygen Concentration - - Weight 120.2 kg (265 lb) 01/25/2016 11:57 PM CDT Height 170.2 cm (5' 7 ) 01/25/2016 11:57 PM CDT Body Mass Index 41.5 01/25/2016 11:57 PM CDT Plan of Treatment Health Maintenance Due Date Last Done Comments Hepatitis C Virus (HCV) Screening 1962 TdaP Immunization 1962 Cologuard 2012 Immunochemical Fecal Occult Blood 2012 Mammogram 2012 Pneumococcal Immunization (5 0+ years) (1 of 1 - PCV) 2012 Zoster Immunization (1 of 2) 2012 Influenza Immunization (#1) 2024 SARS-COV-2 Immunization ( - 2023- season) 2024 Colonoscopy 08/22/2026 08/22/2016, 01/26/2016 Colorectal Cancer Screening 08/22/2026 Respiratory Syncytial Virus (RSV) Immunization (Adult) (1 - 1-dose 75+ series) 2037 08/22/2016, 01/26/2016 Hepatitis B Immunization Aged Out No longer eligible based on patient's age to complete this topic Meningococcal Immunization (ACWY) Aged Out No longer eligible b ased on patient's age to complete this topic Pneumococcal Immunization Combined Aged Out No longer eligible b ased on patient's age to complete this topic Rotavirus Immunization Aged Out No lo nger eligible based on patient's age to complete this topic Procedures Procedure Name Priority Date/Time Associated Diagnosis Comments COLONOSCOPY Routine 08/22/2016 from Last 3 Months or Most Recently Relevant to Health Maintenance Results * COLONOSCOPY (08/22/2016) Dionicio Farias MD PROCEDURE/MINOR SURGICAL ORDE [place] Final Result from Last 3 Months or Most Recently Relevant to Health Maintenance Insurance [employer] Care Teams Hospital Account Liaison Relationship Specialty Start Date End Date Dionicio Farias MD [address] [place] [address] PCP - General Family Medicine 11/14/15 Manjeet Stephenson DO [address] [place] [address] Consulting Physician Gastroenterology 11/14/15
--- OUTSIDE RECORDS SUMMARY | 2024-12-21 21:47 | XMS_ITS | Clinical Summary ---
Author Organization [facility] [employer] Address [address] [place] [address] Care Team Providers Care Felt Carbonizer Name Role Phone Unavailable Primary Care Provider Unavailabl e Source Comments [facility],non-owned Affiliates and Associated Physician Practices is amultiple site organization consisting of ambulatory clinics and hospital sitesin [place], [place]. This disclosure is being madepursuant to the Care Everywhere program and may not contain all information available regarding this patient. Last updated 18.[facility] Allergies Active Allergy Reactions Criticality Noted Date Comments Ciprofloxacin Rash Medium 10/10/2019 Medications * Be aware that medications may not be up to date on this document. Alwaysverify current medications with the patient. Medication Sig Dispensed Refills Start Date End Date Status metFORMIN (GLUCOPHAGE) 500 MG tablet Take 500 mg by mouth 2 times daily with morning and evening meal Active losartan (COZAAR) 100 MG tablet Take 100 mg by mouth once daily Active Levothyroxine Sodium 200 MCG CAPS Activ e omeprazole (PRILOSEC) 20 MG capsule Take 20 mg by mouth daily before breakfast Active atorvastatin (LIPITOR) 10 MG tablet Take 10 mg by mouth at bedtime Active citalopram (CELEXA) 10 MG tablet Take 10 mg by mouth once daily Active benzonatate (TESSALON) 200 MG capsule Take 1 capsule by mouth 3 times daily as needed for Cough 30 capsule 10/10/2019 Active albuterol HFA (PROVENTIL;VENTOLIN ;PROAIR) 108 (90 Base) MCG/ACT inhalerIndications: Medication refill Inhale 2 puffs by mouth every 6 hours as needed for Shortness of Breath, Wheezing or Cough 1 Inhaler 10/14/2020 Active Active Problems No known active problems Social History Tobacco Use Types Packs/Day Years Used Date Smoking Tobacco: Former Cigarettes 3 30 0 06/1983 - 06/2013 Smokeless Tobacco: Never Sex and Gender Information Value Date Recorded Sex Assigned at Not on file Gender Identity Female 10/13/2020 8:22 PM TAPE CONTROLLED MACHINE STITCHER Sexual Orientation Not on file Last Filed Vital Signs Vital Sign Reading Time Taken Comments Blood Pressure 122/78 10/14/2020 12:16 PM TAPE CONTROLLED MACHINE STITCHER Pulse 90 10/14/2020 12:16 PM TAPE CONTROLLED MACHINE STITCHER Temperature 36.9 C (98.4 F) 10/14/2020 12:16 PM TAPE CONTROLLED MACHINE STITCHER Respiratory Rate 20 10/14/2020 12:16 PM TAPE CONTROLLED MACHINE STITCHER Oxygen Saturation 98% 10/14/2020 12:16 PM TAPE CONTROLLED MACHINE STITCHER Inhaled Oxygen Concentration - - Weight 158.8 kg (350 lb) 10/10/2019 10:58 AM TAPE CONTROLLED MACHINE STITCHER Height 170.2 cm (5' 7 ) 10/10/2019 10:58 AM TAPE CONTROLLED MACHINE STITCHER Body Mass Index 54.82 10/10/2019 10:58 AM TAPE CONTROLLED MACHINE STITCHER Plan of Treatment Health Maintenance Due Date Last Done Comments COLOGUARD (AGES 45-75) - COL ON CA SCREENING 1962 COLON MONITORING 1962 COLONOSCOPY - COLON CA SCREENING 1962 CT COLONOGRAPHY - COLON CA SCREENING 1962 Colorectal Cancer Screening 1962 FIT - COLON CA SCREENING 1962 FLEX SIG - COLON CA SCREENING 1962 MAMMOGRAM 1962 PAP SMEAR 1962 HIV SCREENING 1977 HEPATITIS C SCREENING 03/20/1980 DTAP/TDAP/TD VACCINES (1 - Tdap) 1981 LUNG CANCER SCREENING 2012 PNEUMOCOCCAL VACCINE 50+ (1 of 1 - PCV) 2012 ZOSTER VACCINE (1 of 2) 2012 Respiratory Syncytial Virus (RSV) Vaccine Pt: or over 60 yrs (1 - Risk 60-74 years 1-dose series) 2022 COVID-19 VACCINE ( - 2023-2 5 season) 2024 INFLUENZA VACCINE (#1) 2024 DEPRESSION SCREENING 11/06/2024 HEPATITIS B VACCINE Aged Out No longe r eligible based on patient's age to complete this topic HIB VACCINE Aged Out No longer eligi ble based on patient's age to complete this topic HPV VACCINE Aged Out No longer eligi ble based on patient's age to complete this topic MENINGOCOCCAL (Group B) VACCINE Aged Out No longer eligible based on patient's age to complete this topic MENINGOCOCCAL VACCINE Aged Out No nargis aylin eligible based on patient's age to complete this topic PNEUMOCOCCAL VACCINE Aged Out No long er eligible based on patient's age to complete this topic NICOLE SHABAZZ Personal/Family [address] [place] [address] NICOLE SHABAZZ Personal/Family [address] [place] [address] NICOLE SHABAZZ Personal/Family [address] [place] [address]
--- OUTSIDE RECORDS SUMMARY | 2024-12-21 21:47 | XMS_ITS | Clinical Summary ---
Author Organization [facility] Address [facility] [place] [address] Care Team Providers Care Scheduling Agent Name Role Phone Unavailable Primary Care Provider Unavailabl e Social History Tobacco Use Types Packs/Day Years Used Date Smoking Tobacco: Never Assessed Comments Unknown Sex and Gender Information Value Date Recorded Sex Assigned at Not on file Legal Sex Female 8:01 PM CDT Gender Identity Not on file Sexual Orientation Not on file Plan of Treatment Health Maintenance Due Date Last Done Comments Cervical Cancer Screening Pa p Smear (Age 30 to 64) Every 3 Years 1962 Colorectal Cancer Screening Colonoscopy (10 Years) 1962 Annual Physical 1965 Hepatitis C 1980 DTaP, Tdap and Td Vaccines ( 1 - Tdap) 1981 Cervical Cancer Screening Pa p with HPV Testing (Age 30 to 64) Every 5 Years 1992 Cervical Cancer Screening with HPV 1992 Mammogram Screening 2002 Zoster Vaccines (1 of 2) 2012 COVID-19 Vaccine (2023-2 5 season) 2024 Influenza Adult (#1) 2024 RSV Immunization or 60+ Years (1 - 1-dose 75+ series) 2037 Meningococcal B Vaccine Aged Out No l onger eligible based on patient's age to complete this topic Meningococcal Vaccine Aged Out No nargis aylin eligible based on patient's age to complete this topic Pneumococcal Vaccine: Pediat rics (0 to 5 Years) and At-Risk Patients (6 to 64 Years) Aged Out No longer eligible b ased on patient's age to complete this topic RSV Immunizations Under 20 Months Aged Out No longer eligible based on patient's age to complete this topic
--- OUTSIDE RECORDS SUMMARY | 2024-12-21 21:47 | XMS_ITS | Encounter Summary ---
Author Organization [facility] Address [address] [place] [address] Care Team Providers Care Manager Statistical Name Role Phone Jaimee Guerra MD Primary Care Provider [phone] Encounter Details Date Type Department Care Team (Late st Contact Info) Description 11/12/2002 Outpatient Historical [facility] Internal Medicine 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
--- OUTSIDE RECORDS SUMMARY | 2024-12-21 21:47 | XMS_ITS | Encounter Summary ---
Author Organization [facility] Address [address] [place] [address] Care Team Providers Care Executive Search Consultant Name Role Phone Jaimee Guerra MD Primary Care Provider [phone] Encounter Details Date Type Department Care Team (Late st Contact Info) Description 11/12/2002 Outpatient Historical [facility] Internal Medicine [address] [place] [address] Demetris Waddell MD [address] [place] [address] Social History Tobacco Use Types Packs/Day Years Used Date Smoking Tobacco: Never Assessed Comments Unknown Sex and Gender Information Value Date Recorded Sex Assigned at Not on file Legal Sex Female 4:08 AM LITHARGE SUPERVISOR Gender Identity Not on file Sexual Orientation Not on file documented as of this encounter Plan of Treatment Not on file documented as of this encounter Visit Diagnoses Not on filedocumented in this encounter Care Teams Executive Search Consultant Relationship Specialty Start Date End Date Jaimee Guerra MD [address] [place] [address] PCP - General Family Practice 07/30/21 documented as of this encounter
--- OUTSIDE RECORDS SUMMARY | 2024-12-21 21:47 | XMS_ITS | Clinical Summary ---
Author Organization [facility] Address [address] [place] [address] Phone Care Team Providers Care Trades Helper Name Role Phone Jaimee Guerra MD Primary Care Provider [phone] Allergies Active Allergy Reactions Criticality Noted Date Comments Adhesive Tape-Silicones Rash Low 01/26/2016 Ciprofloxacin Anaphylaxis,Hives High 07/29/2021 Levofloxacin Anaphylaxis High 07/29/2021 Meperidine Unknown 01/22/2016 Medications losartan (COZAAR) 100 mg tablet Take 100 mg by mouth daily. Active levothyroxine 200 mcg tablet Take 200 mcg by mouth daily in the morning. Active levothyroxine 25 mcg tablet Take 25 mcg by mouth daily in the morning. Active atorvastatin (LIPITOR) 10 mg tablet Take 10 mg by mouth daily. Active omeprazole (PriLOSEC) 20 mg Capsule, Delayed Release(E.C.) Take 20 mg by mouth 1 time daily as needed for Other (See Comment) (GERD). Active LORazepam (ATIVAN) 0.5 mg tablet Take 0.5 mg by mouth every 8 hours as needed for Anxiety. Active HYDROcodone-viviana taminophen (HYCET) 7.5-325 mg/15 mL SolutionIndicat ions:Morbid obesity (CMS/HCC) Take 15 mL by mouth every 6 hours as needed for severe pain. Max Daily Amount: 60 mL 300 mL 10/19/2021 1:05 PM TITLE INSURANCE EXAMINER 10/18/2021 Active ondansetron (ZOFRAN ODT) 4 mg Tablet, Rapid Dissolve Dissolve 1 tablet on top of tongue, then swallow with saliva every 6 hours as needed for Nausea or Vomiting. 28 Tablet 10/19/2021 1:05 PM TITLE INSURANCE EXAMINER 10/18/2021 Active Active Problems Problem Noted Date Diagnosed Date Type 2 diabetes mellitus without complications 1 12/19/2020 Immunizations Immunization Administration Dates Next Due (Universal Ad)(12 YR UP) COVID-19 VACCINE - EMERGENCY USE AUTHORIZATION, MRNA, [id number](PF) 30 MCG/0.3 ML IM SUSP 09/01/2021,01/15/2021,12/24/2020 Family History Medical History Relation Name Comments Glaucoma Father Lung Cancer Father Stroke Father Arthritis-osteo Mother Heart Disease Mother Healthy Son Relation Name Status Comments Father Mother Alive Son Alive Social History Tobacco Use Types Packs/Day Years Used Date Smoking Tobacco: Former Cigarettes Q uit: 2013 Smokeless Tobacco: Never Alcohol Use Standard Drinks/Week Comments Not Currently 0 (1 standard drink = 0.6 oz pur e alcohol) Comments No Sex and Gender Information Value Date Recorded Sex Assigned at Not on file Legal Sex Female 4:08 AM TITLE INSURANCE EXAMINER Gender Identity Not on file Sexual Orientation Not on file Last Filed Vital Signs Vital Sign Reading Time Taken Comments Blood Pressure 153/84 10/19/2021 11:56 AM TITLE INSURANCE EXAMINER Pulse 86 10/19/2021 8:00 AM TITLE INSURANCE EXAMINER Temperature 36.9 C (98.4 F) 10/19/2021 11:56 AM TITLE INSURANCE EXAMINER Respiratory Rate 20 10/19/2021 11:5 6 AM TITLE INSURANCE EXAMINER Oxygen Saturation 98% 10/19/2021 11: 56 AM TITLE INSURANCE EXAMINER Inhaled Oxygen Concentration - - Weight 165.7 kg (365 lb 6.4 oz) 10/19/2021 4:15 AM TITLE INSURANCE EXAMINER Height 170.2 cm (5' 7 ) 10/19/2021 4:15 AM TITLE INSURANCE EXAMINER Body Mass Index 57.23 10/19/2021 4:15 AM TITLE INSURANCE EXAMINER Plan of Treatment Health Maintenance Due Date Last Done Comments PNEUMOCOCCAL VACCINE 0-64 YE ARS (1 of 2 - PCV) 1968 DIABETES ANNUAL FOOT EXAM 1980 DIABETES ANNUAL RETINAL EXAM 1980 DIABETES MICROALBUMIN ANNUAL SCREEN 1980 LDL CHOLESTEROL ANNUAL 1980 DTAP/TDAP/TD VACCINES (1 - Tdap) 1981 CERVICAL CANCER SCREENING 1992 BREAST CANCER SCREENING 2002 COLORECTAL SCREENING 2007 Colorectal Cancer Screening 2007 FIT-DNA Q 3 years 2007 FIT/FOBT Q 1 year 2007 Flex Sig/CT Colonography Q 5 years 2007 ZOSTER VACCINE (1 of 2) 2012 DIABETES HBA1C Q 6 MONTHS 04/19/2022 10/19/2021 INFLUENZA VACCINE (#1) 2024 COVID-19 Vaccine ( season) 2024 09/01/2021, 01/15/2021, 12/24/2020 RSV VACCINE (60+ or ) (1 - 1-dose 75+ series) 2037 Medical Devices Implanted Type Area Zipper Setter Device Identifier Shelf Expiration Date Model / Serial / Lot Seamguard Endogia 60 [id number] - [id number] Implanted:Qty : 2 on 10/18/2021 by Ibrahima Cortes MD at [facility] Biological N/A: Stomach [employer] 06/30/2024 [id number] / / [id number] Seamguard Endogia 60 Prpl [id number] - [id number] Implanted:Qty : 4 on 10/18/2021 by Ibrahima Cortes MD at [facility] Biological N/A: Stomach [employer] 07/04/2024 [id number] / / [id number] Supervisor Fiber Locking Endoclip Iii 5mm W/Cliplogic [id number] - [id number] Implanted:Qty : 1 on 10/18/2021 by Ibrahima Cortes MD at [facility] Clip [employer] - [employer] 02/04/2024 [id number] / / [id number] Hardware Right: Knee Procedures Procedure Name Priority Date/Time Associated Diagnosis Comments HEMOGLOBIN A1C Routine 10/19/2021 4:45 AM TITLE INSURANCE EXAMINER from Last 3 Months or Most Recently Relevant to Health Maintenance Results * (ABNORMAL) HEMOGLOBIN A1C (10/19/2021 4:45 AM TITLE INSURANCE EXAMINER) HEMOGLOBIN A1C 6.3(H) <=5.6 % 10/19/2021 5:04 AM TITLE INSURANCE EXAMINER [facility] [place] EST. AVG GLUCOSE, A1C 134 mg/dL 10/19/2021 5:04 AM [facility] [place] Blood Venipuncture / Unknown 10/19/2021 4:45 AM TITLE INSURANCE EXAMINER 10/19/2021 4:51 AM TITLE INSURANCE EXAMINER Narrative [facility] [place] - 10/19/2021 5:04 AM TITLE INSURANCE EXAMINER HGB A1C INTERPRETATION NORMAL: <5.7% PRE-DIABETES: 5.7 - 6.4% DIABETES: 6.5% OR GREATER Carlee Redding ADDICTION THERAPIST CHEMISTRY ORDERABLES Final Resul t [facility] [place] CLIA # [id number] [place] [address] from Last 3 Months or Most Recently Relevant to Health Maintenance Insurance BCBS BLUE ACCESS/TRUE BLUE PPO RX [employer] Commercial Advance Directives For more information, please contact: [phone] * Full Code (Latest Code Status on File) Date Activated Date Inactivated Comments 10/18/2021 5:57 AM 10/19/2021 5:02 PM * Full Code Date Activated Date Inactivated Comments 07/30/2021 9:25 AM 07/30/2021 2:45 PM Care Teams Trades Helper Relationship Specialty Start Date End Date Jaimee Guerra MD [address] [place] [id number] PCP - General Family Practice 07/30/21
--- OUTSIDE RECORDS SUMMARY | 2024-12-21 21:47 | XMS_ITS | Referral Summary ---
Author Organization [facility] Address [address] [place] [address] Care Team Providers Care Reverberatory Furnace Supervisor Name Role Phone Unavailable Primary Care Provider Unavailabl e Source Comments [facility],non-owned Affiliates and Associated Physician Practices is amultiple site organization consisting of ambulatory clinics and hospital sitesin [place], [place], [place] and [place]. This disclosure is being madepursuant to the Care Everywhere program and may not contain all information available regarding this patient. Last updated 18.[facility] [employer] Allergies Active Allergy Reactions Criticality Noted Date [...] file Gender Identity Female 10/13/2020 8:22 PM MANAGER MBA Sexual Orientation Not on file Last Filed Vital Signs Vital Sign Reading Time Taken Comments Blood Pressure 122/78 10/14/2020 12:16 PM MANAGER MBA Pulse 90 10/14/2020 12:16 PM MANAGER MBA Temperature 36.9 C (98.4 F) 10/14/2020 12:16 PM MANAGER MBA Respiratory Rate 20 10/14/2020 12:16 PM MANAGER MBA Oxygen Saturation 98% 10/14/2020 12:16 PM MANAGER MBA Inhaled Oxygen Concentration - - Weight 158.8 kg (350 lb) 10/10/2019 10:58 AM MANAGER MBA Height 170.2 cm (5' 7 ) 10/10/2019 10:58 AM MANAGER MBA Body Mass Index 54.82 10/10/2019 10:58 AM MANAGER MBA Plan of Treatment Not on file NICOLE SHABAZZ Personal/Family [address] [place] [address] NICOLE SHABAZZ Personal/Family [address] [place] [address] NICOLE SHABAZZ Personal/Family [address] [place] [address]
--- OUTSIDE RECORDS SUMMARY | 2024-12-21 21:47 | XMS_ITS | Patient Health Summary ---
Author Organization [facility] Address [address] [place] [address] Care Team Providers Care Goat Herder Name Role Phone Unavailable Primary Care Provider Unavailabl e Note from [facility],non-owned Affiliates and Associated Physician Practices is amultiple site organization consisting of ambulatory clinics and hospital sitesin [place], [place], [place] and [place]. This disclosure is being madepursuant to the Care Everywhere program and may not contain all information available regarding this patient. Last updated 18.[facility] Allergies * Ciprofloxacin(Rash) -Medium Criticality Medications * Be aware that medications may not be up to date on this document. Alwaysverify current medications with the patient. * metFORMIN (GLUCOPHAGE) 500 MG tablet Take 500 mg by mouth 2 times daily with morning and evening meal * losartan (COZAAR) 100 MG tablet Take 100 mg by mouth once daily * Levothyroxine Sodium 200 MCG CAPS * omeprazole (PRILOSEC) 20 MG capsule Take 20 mg by mouth daily before breakfast * atorvastatin (LIPITOR) 10 MG tablet Take 10 mg by mouth at bedtime * citalopram (CELEXA) 10 MG tablet Take 10 mg by mouth once daily * benzonatate (TESSALON) 200 MG capsule(Started 10/10/2019) Take 1 capsule by mouth 3 times daily as needed for Cough * albuterol HFA (PROVENTIL;VENTOLIN;PROAIR) 108 (90 Base) MCG/ACT inhaler (Started 10/14/2020) Inhale 2 puffs by mouth every 6 hours as needed for Shortness of Breath, Wheezing or Cough Active Problems No known active problems Social History Tobacco Use Types Packs/Day Years Used Date Smoking Tobacco: Former Cigarettes 3 30 0 06/1983 - 06/2013 Smokeless Tobacco: Never Sex and Gender Information Value Date Recorded Sex Assigned at Not on file Gender Identity Female 10/13/2020 8:22 PM TOOL MAKER APPRENTICE Sexual Orientation Not on file Last Filed Vital Signs Vital Sign Reading Time Taken Comments Blood Pressure 122/78 10/14/2020 12:16 PM TOOL MAKER APPRENTICE Pulse 90 10/14/2020 12:16 PM TOOL MAKER APPRENTICE Temperature 36.9 C (98.4 F) 10/14/2020 12:16 PM TOOL MAKER APPRENTICE Respiratory Rate 20 10/14/2020 12:16 PM TOOL MAKER APPRENTICE Oxygen Saturation 98% 10/14/2020 12:16 PM TOOL MAKER APPRENTICE Inhaled Oxygen Concentration - - Weight 158.8 kg (350 lb) 10/10/2019 10:58 AM TOOL MAKER APPRENTICE Height 170.2 cm (5' 7 ) 10/10/2019 10:58 AM TOOL MAKER APPRENTICE Body Mass Index 54.82 10/10/2019 10:58 AM TOOL MAKER APPRENTICE Procedures * DERMATOPATHOLOGY(Performed 10/22/2015) * DERMATOPATHOLOGY(Performed 09/01/2015) * CULTURE URINE(Performed 05/02/2014) * DERMATOPATHOLOGY(Performed 05/03/2012) * DERMATOPATHOLOGY(Performed 05/03/2012) Results * PATHOLOGY TISSUE FOR DERMATOLOGY (10/22/2015 12:00 AM TOOL MAKER APPRENTICE) Only the most recent of4 resultswithin the time period is included. Result CASE: [id number] PATIENT: NICOLE SHABAZZ PATHOLOGIC DIAGNOSIS: A. Right lower breast medially: SEBORRHEIC KERATOSIS B. Left lower breast lat.: PIGMENTED SEBORRHEIC KERATOSIS C. Left upper quad. abdomen: SEBORRHEIC KERATOSIS, FRAGMENTS OF CLINICAL DATA: A-C: R/O Dys nevus. GROSS DESCRIPTION: A: Received is one formalin filled container labeled with the patients name and designated right lower breast medially. The specimen consists of a shave biopsy measuring 5d5u3zt. Jar 0. B: Received is one formalin filled container labeled with the patients name and designated left lower breast. The specimen consists of a shave biopsy measuring [id number], bisected, 1m1q2uv. Jar 0. C: Received is one formalin filled container labeled with the patients name and designated LUQ abdomen. The specimen consists of a shave biopsy measuring 9i1x7mb, bisected. Jar 0. MICROSCOPIC DESCRIPTION: SPECIMEN A Sections show an acanthotic lesion composed of relatively uniform keratinocytes. There is hyperkeratosis and pseudo horn cysts formation. SPECIMEN B Sections show an acanthotic lesion composed of relatively uniform keratinocytes. There is hyperkeratosis and pseudo horn cysts. Pigment is present in the keratinocytes composing this tumor. SPECIMEN C Sections show multiple fragments showing an acanthotic lesion composed of relatively uniform keratinocytes. There is hyperkeratosis and pseudo horn cysts formation. Electronically signed out by Valeri Kilgore M.D., PhD. 10/26/2015 11:11:22AM [facility] Comment: Performed at: Dermatopathology Laboratory [facility] Department of Dermatology [address] [place] [address], 5th [place] [address] Phone number: [phone] FAX: [phone] 10/22/2015 10/23/2015 Hernesto Sanchez MD LAB - PATHOLOGY/CYTO LOGY ORDERABLES Performing Organization Address City/[facility] Co de Phone Number [facility] [address] [place] [address]. [address] [place] [address], [facility] [phone] * CULTURE URINE (05/02/2014 2:18 PM CDT) Culture Urine No Growth of >100 CFU/ml after 24 hours [facility] Culture Urine Less than 10,000 CFU/ML of Normal Fecal Lesia after 48 Hours [facility] Comment:. Urine specimen (specimen) URINE SPECIMEN OBTAINED BY CLEAN CATCH PROCEDURE / Unknown 05/02/2014 2:18 PM CDT 05/02/2014 10:17 PM CDT Narrative [facility] - 05/04/2014 12:05 PM CDT AndersonSpecimen#[id number] Keven Loc/Rm/Bed: RAD// CLN CATCH U @FAX TO [phone] Yony Provider LAB - MICROBIOLOG Y ORDERABLES [facility] [address] [place] [address], [facility] [phone]
--- OUTSIDE RECORDS SUMMARY | 2024-12-21 23:36 | XMS_ITS | Encounter Summary ---
Author Organization [facility] Address [address] [place] [address] Care Team Providers Care Pharmaceutical Sales Name Role Phone Jaimee Guerra MD Primary Care Provider [phone] Encounter Details Date Type Department Care Team (Late st Contact Info) Description 11/12/2002 Outpatient Historical [facility] Internal Medicine [address] [place] [address] Demetris Waddell MD [address] [place] [address] Social History Tobacco Use Types Packs/Day Years Used Date Smoking Tobacco: Never Assessed Comments Unknown Sex and Gender Information Value Date Recorded Sex Assigned at Not on file Legal Sex Female 4:08 AM HUMAN SERVICE COORDINATOR Gender Identity Not on file Sexual Orientation Not on file documented as of this encounter Plan of Treatment Not on file documented as of this encounter Visit Diagnoses Not on filedocumented in this encounter Care Teams Pharmaceutical Sales Relationship Specialty Start Date End Date Jaimee Guerra MD [address] [place] [address] PCP - General Family Practice 07/30/21 documented as of this encounter
--- OUTSIDE RECORDS SUMMARY | 2024-12-21 23:36 | XMS_ITS | Clinical Summary ---
Author Organization [facility] Address Formerly [facility] [place] [address] Care Team Providers Care Refrigeration Specialist Name Role Phone Unavailable Primary Care Provider [...]
--- OUTSIDE RECORDS SUMMARY | 2024-12-21 23:36 | XMS_ITS | Clinical Summary ---
Author Organization [facility] Address [address] [place] [address] Phone Care Team Providers Care Building And Grounds Supervisor Name Role Phone Jaimee Guerra MD Primary Care Provider [phone] Allergies Active Allergy Reactions Criticality Noted Date [...] 60 mL 300 mL 10/19/2021 1:05 PM HOSPICE HOME CARE COORDINATOR 10/18/2021 Active ondansetron (ZOFRAN ODT) 4 mg Tablet, Rapid Dissolve Dissolve 1 tablet on top of tongue, then swallow with saliva every 6 hours as needed for Nausea or Vomiting. 28 Tablet 10/19/2021 1:05 PM HOSPICE HOME CARE COORDINATOR 10/18/2021 Active Active Problems Problem Noted Date Diagnosed Date Type 2 diabetes mellitus without complications 1 12/19/2020 Immunizations Immunization Administration Dates Next Due ([employer])(12 YR UP) COVID-19 VACCINE - EMERGENCY USE AUTHORIZATION, MRNA, [id number](PF) 30 MCG/0.3 ML IM SUSP 09/01/2021,01/15/2021,12/24/2020 Family [...] on file Legal Sex Female 4:08 AM HOSPICE HOME CARE COORDINATOR Gender Identity Not on file Sexual Orientation Not on file Last Filed Vital Signs Vital Sign Reading Time Taken Comments Blood Pressure 153/84 10/19/2021 11:56 AM HOSPICE HOME CARE COORDINATOR Pulse 86 10/19/2021 8:00 AM HOSPICE HOME CARE COORDINATOR Temperature 36.9 C (98.4 F) 10/19/2021 11:56 AM HOSPICE HOME CARE COORDINATOR Respiratory Rate 20 10/19/2021 11:5 6 AM HOSPICE HOME CARE COORDINATOR Oxygen Saturation 98% 10/19/2021 11: 56 AM HOSPICE HOME CARE COORDINATOR Inhaled Oxygen Concentration - - Weight 165.7 kg (365 lb 6.4 oz) 10/19/2021 4:15 AM HOSPICE HOME CARE COORDINATOR Height 170.2 cm (5' 7 ) 10/19/2021 4:15 AM HOSPICE HOME CARE COORDINATOR Body Mass Index 57.23 10/19/2021 4:15 AM HOSPICE HOME CARE COORDINATOR Plan of Treatment Health Maintenance Due Date [...] series) 2037 Medical Devices Implanted Type Area Certified Personal Trainer Device Identifier Shelf Expiration Date Model / Serial / Lot Seamguard Endogia 60 Blk [id number] - [id number] Implanted:Qty : 2 on 10/18/2021 by Ibrahima Cortes MD at [facility] Biological N/A: Stomach [employer] 06/30/2024 [id number] / / [id number] Seamguard Endogia 60 Prpl [id number] - [id number] Implanted:Qty : 4 on 10/18/2021 by Ibrahima Cortes MD at [facility] Biological N/A: Stomach [employer] 07/04/2024 [id number] [id number] / / [id number] Silvering Applicator Endoclip Iii 5mm W/Cliplogic [id number] - [id number] Implanted:Qty : 1 on 10/18/2021 by Ibrahima Cortes MD at [facility] Clip [employer] 02/04/2024 [id number] / / [id number] Hardware Right: Knee Procedures Procedure Name Priority Date/Time Associated Diagnosis Comments HEMOGLOBIN A1C Routine 10/19/2021 4:45 AM HOSPICE HOME CARE COORDINATOR from Last 3 Months or Most Recently Relevant to Health Maintenance Results * (ABNORMAL) HEMOGLOBIN A1C (10/19/2021 4:45 AM HOSPICE HOME CARE COORDINATOR) HEMOGLOBIN A1C 6.3(H) <=5.6 % 10/19/2021 5:04 AM HOSPICE HOME CARE COORDINATOR [facility] EST. AVG GLUCOSE, A1C 134 mg/dL 10/19/2021 5:04 AM [facility] Blood Venipuncture / Unknown 10/19/2021 4:45 AM HOSPICE HOME CARE COORDINATOR 10/19/2021 4:51 AM HOSPICE HOME CARE COORDINATOR Narrative [facility] - 10/19/2021 5:04 AM HOSPICE HOME CARE COORDINATOR HGB A1C INTERPRETATION NORMAL: <5.7% PRE-DIABETES: 5.7 - 6.4% DIABETES: 6.5% OR GREATER Carlee Redding [employer] PARAPROFESSIONAL CHEMISTRY ORDERABLES Final Resul t [facility] CLIA # [id number] [address] [place] [address] from Last 3 Months or Most Recently Relevant to Health Maintenance Insurance BCBS BLUE ACCESS/TRUE BLUE PPO RX [employer] Commercial Advance Directives For more information, please contact: [phone] * Full Code (Latest Code Status on File) Date Activated Date Inactivated Comments 10/18/2021 5:57 AM 10/19/2021 5:02 PM * Full Code Date Activated Date Inactivated Comments 07/30/2021 9:25 AM 07/30/2021 2:45 PM Care Teams Building And Grounds Supervisor Relationship Specialty Start Date End Date Jaimee Guerra MD [address] [place] [address] PCP - General Family Practice 07/30/21
--- OUTSIDE RECORDS SUMMARY | 2024-12-21 23:36 | XMS_ITS | Clinical Summary ---
Author Organization [facility] Address [address] [place] [address] Phone Care Team Providers Care Infrastructure Developer Name Role Phone Dionicio Farias MD Primary Care Provider [phone] Manjeet Stephenson DO Unavailable [phone] Allergies Active Allergy Reactions Criticality Noted [...] Health Maintenance Insurance [employer] Care Teams Infrastructure Developer Relationship Specialty Start Date End Date Dionicio Farias MD [address] [place] [address] PCP - General Family Medicine 11/14/15 Manjeet Stephenson DO [address] [place] [address] Consulting Physician Gastroenterology 11/14/15
--- OUTSIDE RECORDS SUMMARY | 2024-12-21 23:36 | XMS_ITS | Patient Health Summary ---
Author Organization [facility] [employer] Address [address] [place] [address] Care Team Providers Care Laboratory Engineer Name Role Phone Unavailable Primary Care Provider Unavailabl e Note from [facility],non-owned Affiliates and Associated Physician Practices is amultiple site organization consisting of ambulatory clinics and hospital sitesin [place], [place], [place] and [place]. This disclosure is being madepursuant to the Care Everywhere program and may not contain all information available regarding this patient. Last updated 18.[facility] Allergies * Ciprofloxacin(Rash) -Medium Criticality Medications * [...] file Gender Identity Female 10/13/2020 8:22 PM ALLEY WORKER Sexual Orientation Not on file Last Filed Vital Signs Vital Sign Reading Time Taken Comments Blood Pressure 122/78 10/14/2020 12:16 PM ALLEY WORKER Pulse 90 10/14/2020 12:16 PM ALLEY WORKER Temperature 36.9 C (98.4 F) 10/14/2020 12:16 PM ALLEY WORKER Respiratory Rate 20 10/14/2020 12:16 PM ALLEY WORKER Oxygen Saturation 98% 10/14/2020 12:16 PM ALLEY WORKER Inhaled Oxygen Concentration - - Weight 158.8 kg (350 lb) 10/10/2019 10:58 AM ALLEY WORKER Height 170.2 cm (5' 7 ) 10/10/2019 10:58 AM ALLEY WORKER Body Mass Index 54.82 10/10/2019 10:58 AM ALLEY WORKER Procedures * DERMATOPATHOLOGY(Performed 10/22/2015) * DERMATOPATHOLOGY(Performed 09/01/2015) * CULTURE URINE(Performed 05/02/2014) * DERMATOPATHOLOGY(Performed 05/03/2012) * DERMATOPATHOLOGY(Performed 05/03/2012) Results * PATHOLOGY TISSUE FOR DERMATOLOGY (10/22/2015 12:00 AM ALLEY WORKER) Only the most recent of4 resultswithin the time period is included. Result CASE: [id number] PATIENT: NICOLE SHABAZZ PATHOLOGIC DIAGNOSIS: A. Right lower breast medially: SEBORRHEIC KERATOSIS B. Left lower breast lat.: PIGMENTED SEBORRHEIC KERATOSIS C. Left upper quad. abdomen: SEBORRHEIC KERATOSIS, FRAGMENTS OF CLINICAL DATA: A-C: R/O Dys nevus. GROSS DESCRIPTION: A: Received is one formalin filled container labeled with the patients name and designated right lower breast medially. The specimen consists of a shave biopsy measuring 6d4l9st. Jar 0. B: Received is one formalin filled container labeled with the patients name and designated left lower breast. The specimen consists of a shave biopsy measuring 82r1r8xs, bisected, 2i6n3gy. Jar 0. C: Received is one formalin filled container labeled with the patients name and designated LUQ abdomen. The specimen consists of a shave biopsy measuring 7p3o6nv, bisected. Jar 0. MICROSCOPIC DESCRIPTION: SPECIMEN A [...] by Valeri Kilgore M.D., PhD. 10/26/2015 11:11:22AM [facility] Comment: Performed at: Dermatopathology Laboratory [facility] Department of Dermatology [address] [place] [address], 5th [place] [address] Phone number: [phone] FAX: [phone] 10/22/2015 10/23/2015 Hernesto Sanchez MD LAB - PATHOLOGY/CYTO LOGY ORDERABLES Performing Organization Address City/[facility] Co de Phone Number [facility] [address] [place] [address]. [address] [place] [address], [facility] [phone] * CULTURE URINE (05/02/2014 2:18 PM CDT) Culture Urine No Growth of >100 CFU/ml after 24 hours [facility] Culture Urine Less than 10,000 CFU/ML of Normal Fecal Lesia after 48 Hours [facility] Comment:. Urine specimen (specimen) URINE SPECIMEN OBTAINED BY CLEAN CATCH PROCEDURE / Unknown 05/02/2014 2:18 PM CDT 05/02/2014 10:17 PM CDT Narrative [facility] - 05/04/2014 12:05 PM CDT AndersonSpecimen#[id number] Keven Loc/Rm/Bed: RAD// CLN CATCH U @FAX TO [phone] Yony Provider LAB - MICROBIOLOG Y ORDERABLES [facility] [address] [place] [address], [facility] [phone]
--- OUTSIDE RECORDS SUMMARY | 2024-12-21 23:36 | XMS_ITS | Encounter Summary ---
Author Organization [facility] Address [address] [place] [address] Care Team Providers Care Director Of Anesthesia Services Name Role Phone Jaimee Guerra MD Primary Care Provider [phone] Encounter Details Date Type Department Care Team (Late st Contact Info) Description 11/12/2002 Outpatient Historical [facility] Internal Medicine [address] [place] [address] Demetris Waddell MD [address] [place] [address] Social History Tobacco Use Types Packs/Day Years Used Date Smoking Tobacco: Never Assessed Comments Unknown Sex and Gender Information Value Date Recorded Sex Assigned at Not on file Legal Sex Female 4:08 AM COSMETIC MANAGER Gender Identity Not on file Sexual Orientation Not on file documented as of this encounter Plan of Treatment Not on file documented as of this encounter Visit Diagnoses Not on filedocumented in this encounter Care Teams Director Of Anesthesia Services Relationship Specialty Start Date End Date Jaimee Guerra MD [address] [place] [address] PCP - General Family Practice 07/30/21 documented as of this encounter
--- OUTSIDE RECORDS SUMMARY | 2024-12-21 23:36 | XMS_ITS | Referral Summary ---
Author Organization [facility] [employer] Address [address] [place] [address] Care Team Providers Care Binder Cutter Hand Name Role Phone Unavailable Primary Care Provider Unavailabl e Source Comments [facility],non-owned Affiliates and Associated Physician Practices is amultiple site organization consisting of ambulatory clinics and hospital sitesin [place], [place], [place] and [place]. This disclosure is being madepursuant to the Care Everywhere program and may not contain all information available regarding this patient. Last updated 18.[facility] Allergies Active Allergy Reactions Criticality Noted Date [...] file Gender Identity Female 10/13/2020 8:22 PM PAIN MANAGEMENT NURSE Sexual Orientation Not on file Last Filed Vital Signs Vital Sign Reading Time Taken Comments Blood Pressure 122/78 10/14/2020 12:16 PM PAIN MANAGEMENT NURSE Pulse 90 10/14/2020 12:16 PM PAIN MANAGEMENT NURSE Temperature 36.9 C (98.4 F) 10/14/2020 12:16 PM PAIN MANAGEMENT NURSE Respiratory Rate 20 10/14/2020 12:16 PM PAIN MANAGEMENT NURSE Oxygen Saturation 98% 10/14/2020 12:16 PM PAIN MANAGEMENT NURSE Inhaled Oxygen Concentration - - Weight 158.8 kg (350 lb) 10/10/2019 10:58 AM PAIN MANAGEMENT NURSE Height 170.2 cm (5' 7 ) 10/10/2019 10:58 AM PAIN MANAGEMENT NURSE Body Mass Index 54.82 10/10/2019 10:58 AM PAIN MANAGEMENT NURSE Plan of Treatment Not on file NICOLE SHABAZZ Personal/Family [address] [place] [address] NICOLE SHABAZZ Personal/Family [address] [place] [address] NICOLE SHABAZZ Personal/Family [address] [place] [address]
--- OUTSIDE RECORDS SUMMARY | 2024-12-21 23:36 | XMS_ITS | Clinical Summary ---
Author Organization [facility] Address [address] [place] [address] Care Team Providers Care Straightener And Aligner Name Role Phone Unavailable Primary Care Provider Unavailabl e Source Comments [facility],non-owned Affiliates and Associated Physician Practices is amultiple site organization consisting of ambulatory clinics and hospital sitesin [place], [place], [place] and [place]. This disclosure is being madepursuant to the Care Everywhere program and may not contain all information available regarding this patient. Last updated 18.[facility] Allergies Active Allergy Reactions Criticality Noted Date [...] file Gender Identity Female 10/13/2020 8:22 PM PEST CONTROL WORKER HELPER Sexual Orientation Not on file Last Filed Vital Signs Vital Sign Reading Time Taken Comments Blood Pressure 122/78 10/14/2020 12:16 PM PEST CONTROL WORKER HELPER Pulse 90 10/14/2020 12:16 PM PEST CONTROL WORKER HELPER Temperature 36.9 C (98.4 F) 10/14/2020 12:16 PM PEST CONTROL WORKER HELPER Respiratory Rate 20 10/14/2020 12:16 PM PEST CONTROL WORKER HELPER Oxygen Saturation 98% 10/14/2020 12:16 PM PEST CONTROL WORKER HELPER Inhaled Oxygen Concentration - - Weight 158.8 kg (350 lb) 10/10/2019 10:58 AM PEST CONTROL WORKER HELPER Height 170.2 cm (5' 7 ) 10/10/2019 10:58 AM PEST CONTROL WORKER HELPER Body Mass Index 54.82 10/10/2019 10:58 AM PEST CONTROL WORKER HELPER Plan of Treatment Health Maintenance Due Date [...] this topic NICOLE SHABAZZ Personal/Family [address] [place] [address] NICOLE SHABAZZ Personal/Family [address] [place] [address] NICOLE SHABAZZ Personal/Family [address] [place] [address]
--- NOTE | 2024-12-21 23:40 | ED.FALL ---
HPI - Fall General Chief Complaint: Fall Stated Complaint: fall, lip lac, broken tooth Time Seen by Provider: 12/21/24 23:31 Source: patient Mode of arrival: ambulatory Limitations: no limitations History of Present Illness HPI Narrative: This is a 64-year-old female who presents to the ED for chief complaint of ground level fall today. Patient states that she tripped in the parking lot over a cinder block due to it being dark outside. States that she went straight down face 1st into the concrete. Reports laceration to the lower lip. Denies LOC, neck pain or any further site of injury. She reports some pain to the nose and mouth but otherwise has no pain. Reports chipped right front tooth. Related Data Home Medications ?Medication ?Instructions ?Recorded ?Confirmed ?Last Taken ?Type calcium carbonate 400 mg PO DAILY 01/14/22 09/25/24 10/17/22 History cholecalciferol (vitamin D3) 50 50 mcg PO DAILY 02/03/22 09/25/24 10/17/22 History mcg (2,000 unit) capsule lactobacillus combination no.9 4 4,000 mmu cells PO DAILY 02/03/22 09/25/24 10/17/22 History billion cell capsule (Adult 50 Plus Probiotic) mecobalamin (vitamin B12) 1,000 1,000 mcg PO DAILY 02/03/22 09/25/24 10/17/22 History mcg chewable tablet multivitamin 1 tablet PO DAILY 02/03/22 09/25/24 10/17/22 History biotin 5,000 mcg chewable tablet 5,000 mcg PO DAILY 05/10/24 09/25/24 Unknown History Allergies Allergy/AdvReac Type Severity Reaction Status Date / Time ciprofloxacin Allergy Severe Anaphylaxis Verified 12/21/24 21:52 cephalexin Allergy Unknown Unknown Verified 12/21/24 21:52 fluoxetine Allergy Unknown Unknown Verified 12/21/24 21:52 meperidine Allergy Unknown Difficulty Verified 12/21/24 21:52 breathing/anxiety attack Penicillins Allergy Unknown Unknown Verified 12/21/24 21:52 Quinolones Allergy Unknown Unknown Verified 12/21/24 21:52 Review of Systems Review of Systems: All systems as dictated in HPI [facility] Past Medical History Medical History Acquired pes planovalgus of left foot Anxiety Arthritis of knee, left Depression Diverticulitis (~12/2002) Dyslipidemia Encounter for immunization Essential (primary) hypertension GERD (gastroesophageal reflux disease) Hiatal hernia History of diverticulitis Hypothyroidism Screening mammogram, encounter for Type 2 diabetes mellitus without complications Surgical History Surgical History H/O bariatric surgery 2020 per patient questionnaire History of delivery History of cholecystectomy 2015 History of incisional hernia repair Open incisional hernia repair w/ mesh bilateral component separation on 10/21/22. History of knee surgery History of lumbosacral spine surgery 2013 History of partial colectomy 01/2016 - secondary to perforated diverticulitis History of rectal surgery Rectal exam un/enedina anesthesia with manual fecal disimpaction 03/13/24 History of total abdominal hysterectomy and bilateral salpingo-oophorectomy 1996 Hx of tonsillectomy Family History Family History Mother Family history of osteoporosis Family history of mental disorder Family history of colonic diverticulitis Hypertension Cerebrovascular accident Diabetes mellitus Father Cerebrovascular accident Family history of lung cancer Family history of glaucoma Other Family history of arthritis Family history of cardiovascular disease Family history of heart disease in male family member before age 55 Social History Social History Smoking packs per day: 1 Smoking cigarettes per day: 20.0 Years smoked: 35 Smoking pack-years: 35.00 Smoking status: Former smoker (quit smoking in 2012. Vaped for 1 year. 40 years, 2.5-3 packs per day) Tobacco type: cigarettes Second hand tobacco smoke exposure: No Smoking end date: 03/12/13 Additional smoking assessment comments: quit vaping in 2015 Alcohol intake: current Alcohol use details: holiday Substance use: never Substance use type: does not use Do You Feel Safe in your Home?: Yes Lack of Transportation: No Lack of Food: Never True Current Housing: I Have Housing Concerned About Future Housing: No Difficulty Paying Gas/Electric Bills: No Difficulty Paying for Meds: No Currently Unemployed: No Education: Associate Degree Difficulty w/ Childcare or Family Care: No Living arrangements: with family Additional living arrangements comments: Occupation/Education: occupation 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 HEAD: Normocephalic, atraumatic. EYES: PERRLA and EOMI. ENT: There is a laceration to the lower lip that is on the mucosal surface and abuts the vermilion border. It is irregular and 1cm in size. No active bleeding. There is a 2nd external laceration to the skin inferior to the lower lip. It is about 1.5 cm and does not go through and through. Bleeding controlled. Mild swelling and tenderness to the nose. No significant displacement. No septal hematoma. Fractured right front tooth. Mucous membranes moist. Oropharynx without tonsillar hypertrophy exudate or other lesions. NECK: Supple. No adenopathy or masses. CHEST: No respiratory distress. Clear to auscultation. No wheezes rales or rhonchi HEART: Regular rate and rhythm. No murmur heard. Normal peripheral pulses. ABDOMEN: Soft, nontender, nondistended, normal active bowel sounds. MSK: Normal range of motion. No edema. No midline spinal tenderness. SKIN: Warm, dry, no rash. See above NEURO: Alert and oriented x4. No focal deficits. PSYCH: Normal mood and affect. Course Vital Signs Vital signs: Vital Signs Temperature 97.7 F 12/21/24 21:47 Pulse Rate 84 12/21/24 21:47 Respiratory Rate 16 12/21/24 21:47 Blood Pressure 127/107 H 12/21/24 21:47 Pulse Oximetry 94 12/21/24 21:47 Oxygen Delivery Room Air 12/21/24 21:47 Temperature 97.7 F 12/21/24 21:47 Pulse Rate 84 12/21/24 21:47 Respiratory Rate 16 12/21/24 21:47 Blood Pressure 127/107 H 12/21/24 21:47 Pulse Oximetry 94 12/21/24 21:47 Oxygen Delivery Room Air 12/21/24 21:47 Procedures Laceration Laceration 1: Date: 12/22/24 Time: 01:18 Site: lip Size (cm): 1 Description: irregular Depth: simple, single layer Local Anesthetic: lidocaine 1% (mental block) Amount of anesthesia used (mL): 2 Pre-repair: wound explored, irrigated, irrigated extensively and deep structures intact ====== Skin Level ====== Skin layer closed with: vicryl Size (cm): 4-0 Number of sutures: 2 Technique: simple, interrupted ====== Subcutaneous Layer ====== ====== Muscle Layer ====== ====== Tendon Layer ====== Laceration 2: Date: 12/22/24 Time: :18 Site: lip Size (cm): 1.5 Description: linear Depth: simple, single layer Local Anesthetic: lidocaine 1% (mental block) Amount of anesthesia used (mL): 2 Pre-repair: wound explored, irrigated, irrigated extensively and deep structures intact ====== Skin Level ====== Skin layer closed with: nylon Size (cm): 5-0 Number of sutures: 2 Technique: simple, interrupted ====== Subcutaneous Layer ====== ====== Muscle Layer ====== ====== Tendon Layer ====== MDM - Fall MDM Narrative Medical decision making narrative: This is a 64-year-old female who presents to the ED for chief complaint of a fall with lip laceration today. Vitals are normal. Exam is remarkable for the above. She does have a external lower lip laceration as well as internal lower lip laceration. The lacerations are not through and bleeding controlled on arrival. CT imaging of the head, facial and cervical spine are without acute findings. She does have a broken right superior incisor. The laceration to the inner lip and exterior lip were anesthetized with mental block. The wounds were well cleansed and irrigated here. Closed primarily with sutures. Laceration instructions given. Tdap updated today. Rx for cephalexin for antibiotic prophylaxis given. Patient will be discharged in stable condition. Supportive measures discussed and return precautions given. Patient is understanding and agreeable with plan for discharge with PCP follow-up. Discharge Plan Discharge Clinical Impression: Head injury, Laceration of lip Patient Disposition: Home, Self-Care Condition: Stable Instructions: Antibiotic Form, Laceration (ED) Additional Instructions: Your exam and imaging today are reassuring. You did have a lip laceration that was sutured here. Keep wound clean and dry. Do not soak, take baths, or swim until wound is completely healed. If any signs of infection such as redness, swelling, increasing pain, drainage of purulent discharge, streaks up your extremity develop, seek medical attention immediately. Followup with your primary care provider in [7] days for suture removal. Use regular Tylenol and ibuprofen every 6 hours for pain and swelling. Take antibiotics for infection prevention. If you have any new or worsening symptoms please return to the ER for further evaluation. Patient Language: [place] Prescriptions: New cephalexin 500 mg capsule 500 mg PO Q8H 7 Days Qty: 21 0RF No Action calcium carbonate 400 mg calcium (1,000 mg) tablet,chewable 400 mg PO DAILY multivitamin Tablet 1 tablet PO DAILY Adult 50 Plus Probiotic 4 billion cell capsule 4,000 mmu cells PO DAILY Rx Instructions: administer with a meal cholecalciferol (vitamin D3) 50 mcg (2,000 unit) capsule 50 mcg PO DAILY mecobalamin (vitamin B12) 1,000 mcg tablet,chewable 1,000 mcg PO DAILY biotin 5,000 mcg Tablet,Chewable 5,000 mcg PO DAILY lorazepam 0.5 mg tablet 0.5 mg PO DAILY PRN (Reason: anxiety) Qty: 30 0RF escitalopram oxalate [Lexapro] 10 mg tablet 10 mg PO DAILY Qty: 30 5RF losartan 25 mg tablet 25 mg PO DAILY Qty: 90 2RF Mounjaro 5 mg/0.5 mL pen injector 5 mg subcut WEEKLY Qty: 2 0RF levothyroxine 175 mcg tablet 175 mcg PO .COMPLEX Qty: 78 0RF Rx Instructions: 175 mcg orally Mon, e, Wed, Thur, Fri, Sat; Follow-up/Referrals: Jaimee Guerra MD [Primary Care Provider] - Time of Disposition: 00:35
[2024-12-22] MEDS: LIDOCAINE 2% VISC SOLN 15 ML UDC PO (00:04)
[2024-12-22] MEDS: TETANUS,DIPHTHERIA,AC PERTUSSIS ADULT (0.5 ML) BOOSTRIX IM (00:57)
== END 2024-12-22 01:00 | disposition home or self-care (01) ==
PROVIDERS: Emergency Provider Physician Assistant; PCP Family Medicine
DX: S01.511A Laceration without foreign body of lip, initial encounter (principal); I10 Essential (primary) hypertension; E03.9 Hypothyroidism, unspecified; E11.9 Type 2 diabetes mellitus without complications; E78.5 Hyperlipidemia, unspecified; K21.9 Gastro-esophageal reflux disease without esophagitis; K44.9 Diaphragmatic hernia without obstruction or gangrene; M17.12 Unilateral primary osteoarthritis, left knee; Z98.84 Bariatric surgery status; Z87.891 Personal history of nicotine dependence; Z90.49 Acquired absence of other specified parts of digestive tract; W18.09XA Striking against other object with subsequent fall, initial encounter
CPT/HCPCS: 12011; 70450; 70486; 72125; 90471; 90715; 99284

== ENCOUNTER 2025-02-17 09:20 | Outpatient (CLI) | payer BC, SELFPAY ==
--- NOTE | ~2025-02-17 | MM_ITS ---
EXAMINATION: MM screening janine BI w patsy HISTORY: Screening TECHNIQUE: Craniocaudal and mediolateral oblique 3-D tomosynthesis images were obtained and synthetic 2-D images were generated. CAD analysis was submitted and interpreted. COMPARISON: 01/19/2024 BREAST PARENCHYMAL COMPOSITION: Not dense: There are scattered areas of fibroglandular density. FINDINGS: There is no evidence of suspicious mass, calcification, or architectural distortion to sugg est malignancy in either breast. There has been no suspicious interval change. IMPRESSION: 1. No mammographic evidence of malignancy. 2. Recommend routine screening mammography in one year. BI-RADS Category 1: Negative Reviewed, dictated and finalized at location B.
== END 2025-02-17 09:21 | disposition home or self-care (01) ==
LOC: MICIMG 09:21
PROVIDERS: PCP Family Medicine; Visit Provider Obstetrics & Gynecology
DX: Z12.31 Encounter for screening mammogram for malignant neoplasm of breast (principal)
CPT/HCPCS: 77063; 77067

== ENCOUNTER 2025-04-29 12:30 | Outpatient (CLI) | payer BC, SELFPAY ==
--- NOTE | ~2025-04-29 | DEXA_ITS ---
Bone Density Report Name: CIELO MORRIS Age: 65 Sex: Female Ethnicity: White Date of : 1960 Indication: postmenopausal; screening for osteoporosis; height loss; hysterectomy; Referring Provider: SHAWNA ROTHMAN Study: Bone densitometry was performed. Exam Date: April 29, 2025 Accession number: [id number] Bone Density: Region BMD T-score Z-score Classification AP Spine(L1-L4) 1.403 3.2 4.9 Normal Femoral Neck (Left) 0.881 0.3 1.7 Normal Total Hip (Left) 1.096 1.3 2.4 Normal Femoral Neck (Right) 1.013 1.5 2.9 Normal Total Hip (Right) 1.209 2.2 3.3 Normal Total Hip Mean 1.152 1.8 2.9 Normal World Health Organization criteria for BMD impression classify patients as: Normal (T-score at or above -1.0), Osteopenia (T-score between -1.0 and -2.5), or Osteoporosis (T-score at or below -2.5). 10-year Fracture Risk: FRAX not reported because: All T-scores for Spine Total, Hip Total, Femoral Neck at or above -1.0 Clinical Information Provided by Patient: Has used the following medications: Vitamin D, Calcium Has the following medical conditions: Hysterectomy Patient maximum height was 67 Menopause Age: 37 No regular weight bearing exercise Onset of menses at age 16 Number of children 1 Impression: The patient has normal bone mass. Discussion: BONE DENSITY IS ABOVE THE MINIMUM DESIRABLE LEVEL AT ALL SKELETAL SITES TESTED. This patient?s bone mineral density is above the minimum desirable level (T-score -1.0 or better) at all sites measured. The patient should follow a healthful lifestyle (good nutrition with adequate calcium and vitamin D, and appropriate weight-bearing exercise). Follow-Up: Consider repeating this study in 5 years or sooner if there is some new clinical indication. Reported by: DEACON on 04/29/2025 12:53:00 PM. Reviewed, dictated and finalized at location A.
--- NOTE | ~2025-04-29 | CT_ITS ---
CT Scan of the Chest without Contrast: Clinical Indication: Lung cancer screening, nicotine dependence Technique: Contiguous sections were acquired throughout the chest without intravenous contrast. Dose reduction technique was used on this scan by utilizing automated exposure control and iterative recon struction technique. The dose-length product (DLP) was 218.58 mGy-cm. Findings: There is no evidence of any significant mediastinal, hilar or axillary lymphadenopathy. The mediastin al soft tissues appear normal. There is no evidence of pleural or pericardial effusion. The lungs are clear. No pulmonary nodules or infiltrates are noted. Images through the upper abdomen reveal right adrenal myelolipoma. Impression: Lung RADS 1: Negative. 12 month follow-up screening CT advised. Reviewed, dictated and finalized at location . Impression: Lung RADS 1: Negative. 12 month follow-up screening CT advised.
== END 2025-04-29 12:31 | disposition home or self-care (01) ==
LOC: MICIMG 12:31
PROVIDERS: PCP Family Medicine; Visit Provider Student in an Organized Health Care Education/Training Program
DX: Z12.2 Encounter for screening for malignant neoplasm of respiratory organs (principal); Z78.0 Asymptomatic menopausal state; Z87.891 Personal history of nicotine dependence
CPT/HCPCS: 71271; 77080